=== PATIENT | male | born 1955 | race African-American/Black ===

== ENCOUNTER → 2017-03-11 | Outpatient (CLI) | payer OTHER ==
[~2017-03-11] VITALS: Ht 182.9 cm; Wt 98.7 kg
[2017-03-11] VITALS (13 sets, daily range): BP systolic 141–170; BP diastolic 75–106; PULSE 71–85
[~2017-03-11] MED LIST: ADVIL200 MG PO; ASPIRIN E.C. 8181 MG PO; LOPRESSOR 225 MG/TAB PO; METAMUCIL3.4 GM/DOS PO; MULTI VITAMINS1 TAB PO; NORCO 325 MG-51 TAB PO
== END ==
LOC: COL.RAD 03-04 13:30
DX: C79.89 Secondary malignant neoplasm of other specified sites (principal); Z85.46 Personal history of malignant neoplasm of prostate; E78.5 Hyperlipidemia, unspecified
CPT/HCPCS: J2250; J3010

== ENCOUNTER 2017-05-04 12:35 | Day surgery (SDC) | payer BC ==
[~2017-05-04] VITALS: Ht 182.9 cm; Wt 94.7 kg
[2017-05-04] VITALS (7 sets, daily range): BP systolic 131–165; BP diastolic 55–90; PULSE 52–65; TEMP 96.9–97.9
[~2017-05-04 12:35] MED LIST changes: -ADVIL200 MG PO; -ASPIRIN E.C. 8181 MG PO; -LOPRESSOR 225 MG/TAB PO; -METAMUCIL3.4 GM/DOS PO; -MULTI VITAMINS1 TAB PO
[2017-05-04] MEDS ORDERED: MULTI VITAMINS1 TAB PO (14:21)
[2017-05-04] MEDS ORDERED: LOPRESSOR 225 MG/TAB PO (14:21)
[2017-05-04] MEDS ORDERED: ASPIRIN E.C. 8181 MG PO (14:21)
[2017-05-04] MEDS ORDERED: ADVIL200 MG PO (14:22)
[2017-05-04] MEDS ORDERED: METAMUCIL3.4 GM/DOS PO (14:22)
== END 2017-05-04 21:15 | disposition home or self-care (01) ==
LOC: SDCO 12:35 → SURG 18:06 → SDCO 21:15
DX: C79.89 Secondary malignant neoplasm of other specified sites (principal); N13.39 Other hydronephrosis; N52.9 Male erectile dysfunction, unspecified; E78.00 Pure hypercholesterolemia, unspecified; Z92.3 Personal history of irradiation; Z92.21 Personal history of antineoplastic chemotherapy; Z85.46 Personal history of malignant neoplasm of prostate; Z85.038 Personal history of other malignant neoplasm of large intestine; Z87.891 Personal history of nicotine dependence; G44.009 Cluster headache syndrome, unspecified, not intractable
CPT/HCPCS: OP; C1769; C1788; C2617; J0690; J1100; J1644; J2405; J2704; J3010; J7120

== ENCOUNTER 2017-08-17 12:38 | Day surgery (SDC) | payer BC ==
[~2017-08-17] VITALS: Ht 182.9 cm; Wt 93.7 kg
[~2017-08-17 12:38] MED LIST changes: +ADVIL200 MG PO; +ASPIRIN E.C. 8181 MG PO; +LOPRESSOR 225 MG/TAB PO; +METAMUCIL3.4 GM/DOS PO; +MULTI VITAMINS1 TAB PO
[2017-08-17 14:10] VITALS: BP 121/89; PULSE 88; TEMP 98.2
[2017-08-17] MEDS ORDERED: TOPROL XL 25MG25 MG PO (14:18)
[2017-08-17] MEDS ORDERED: OMEGA-3 FISH1000 MG PO (14:20)
[2017-08-17] MEDS ORDERED: VITAMIN D31000 I1 PO (14:20)
[2017-08-17 16:10] VITALS: BP 135/91; PULSE 69; TEMP 97.9
[2017-08-17 16:13] VITALS: TEMP 98.1
[2017-08-17 16:25] VITALS: BP 154/91; PULSE 70
[2017-08-17] MEDS ORDERED: PYRIDIUM 100MG100 MG PO (16:25)
[2017-08-17] MEDS ORDERED: DULCOLAX STOOL100 MG PO (16:25)
[2017-08-17 16:40] VITALS: BP 149/91; PULSE 70
== END 2017-08-17 16:55 | disposition home or self-care (01) ==
LOC: SDCO 12:38
DX: N13.5 Crossing vessel and stricture of ureter without hydronephrosis (principal); C20 Malignant neoplasm of rectum; I10 Essential (primary) hypertension; E78.5 Hyperlipidemia, unspecified; R30.0 Dysuria; R35.0 Frequency of micturition; G44.009 Cluster headache syndrome, unspecified, not intractable; G43.909 Migraine, unspecified, not intractable, without status migrainosus; Z93.3 Colostomy status; Z85.46 Personal history of malignant neoplasm of prostate; Z92.3 Personal history of irradiation; N52.9 Male erectile dysfunction, unspecified; E78.00 Pure hypercholesterolemia, unspecified; Z87.891 Personal history of nicotine dependence
CPT/HCPCS: C1769; C2617; J0360; J0690; J1100; J1885; J2405; J2704; J3010; J7120; Q9967

== ENCOUNTER → 2018-07-06 | Outpatient (CLI) | payer BC ==
[~2018-07-06] MED LIST changes: +DULCOLAX STOOL100 MG PO; +OMEGA-3 FISH1000 MG PO; +PYRIDIUM 100MG100 MG PO; +TOPROL XL 25MG25 MG PO; +VITAMIN D31000 I1 PO
== END ==
LOC: MHCPAIN 08:13
DX: G89.29 Other chronic pain (principal); M47.817 Spondylosis without myelopathy or radiculopathy, lumbosacral region; M54.16 Radiculopathy, lumbar region; M53.3 Sacrococcygeal disorders, not elsewhere classified
CPT/HCPCS: G0463

== ENCOUNTER 2019-05-15 18:25 | Inpatient (IN) | payer BC ==
[~2019-05-15] VITALS: Ht 182.9 cm; Wt 90.7 kg
[2019-05-15] VITALS (59 sets, daily range): BP systolic 106; BP diastolic 75; PULSE 98; TEMP 98.7; O2SAT 92–98
[2019-05-15 19:06] LABS: BASO % 0.2 % (0.0-2.0); GRAN # 9.8 (1.4-6.5); LYMPH # 0.4 (1.2-3.4); LYMPH % 4.1 % (20.0-51.0); MEAN CELL VOLUME 98 fl (80.0-100.0); MEAN CORPUSCULAR HEMOGLOBIN 32 pg (27.0-31.0); MEAN CORPUSCULAR HGB CONC 33 g/dl (33.0-37.0); MEAN PLATELET VOLUME 11.3 fl (7.4-10.4); MONO # 0.1 (0.1-0.6); PLATELET COUNT 169 K/mm3 (130-400); RED BLOOD COUNT 3.75 M/mm3 (4.20-5.60); REDCELL DISTRIBUTION WIDTH-CV 14.6 % (11.5-14.5)
[2019-05-15 19:08] LABS: HEMATOCRIT 36.6 % (42.0-52.0)
[2019-05-15 19:34] LABS: INR 1.5 (0.8-3.0); PROTHROMBIN TIME 17.7 SECONDS (9.7-12.8)
[2019-05-15 19:36] LABS: ALBUMIN 3.4 gm/dL (3.5-5.0); BILIRUBIN,TOTAL 0.8 mg/dL (0.0-1.0); CALCIUM 8.4 mg/dL (8.4-10.2); POTASSIUM 4.2 mmol/L (3.4-5.0); TOTAL PROTEIN 6.8 gm/dL (6.4-8.2)
[2019-05-15 19:39] LABS: CREATININE, serum 3.98 (0.66-1.25)
[2019-05-15 19:45] LABS: TROPONIN-I 0.021 ng/mL (0.000-0.035)
[2019-05-15 20:09] LABS: MUCOUS Present /lpf; PH 6 (5-8); SQUAMOUS EPITHELIAL None Seen /hpf; URINE APPEARANCE Turbid; URINE BACTERIA Rare /hpf; URINE BILIRUBIN Negative (NEGATIVE); URINE BLOOD 3+ (NEGATIVE); URINE COLOR Red; URINE GLUCOSE Negative (NEGATIVE); URINE KETONE Negative (NEGATIVE); URINE LEUKOCYTE ESTERASE 2+ (NEGATIVE); URINE NITRATE Negative (NEGATIVE); URINE PROTEIN(semi-quant) 2+ (NEGATIVE); URINE RBC >50 /hpf; URINE UROBILINOGEN Negative (NEGATIVE)
[2019-05-15 20:11] LABS: COLLECTION METHOD CATHETER
[2019-05-15 20:24] LABS: C-REACTIVE PROTEIN 39.9 mg/dL (0.0-0.9)
[2019-05-15] MEDS ORDERED: ULTRAM 50MG TAB50 MG PO (20:44)
[2019-05-15] MEDS ORDERED: TOPROL XL 50MG50 MG PO (20:44)
[2019-05-15] MEDS ORDERED: LEVAQUIN 5500 MG/TA1 PO (20:46)
[2019-05-15 21:10] LABS: CREATININE, serum 3.91 (0.66-1.25)
[2019-05-15 21:22] LABS: FRACTIONAL EXCRETION OF NA+ 1.8 %
[2019-05-15] MEDS ORDERED: NORCO 325 MG-51 TAB PO (22:45)
[2019-05-15] MEDS ORDERED: RAPAFLO8 MG PO (22:46)
[2019-05-15] MEDS ORDERED: ASPIRIN 81M81 MG/TA2 PO (22:47)
[2019-05-15 23:22] LABS: CREATININE, serum 3.85 (0.66-1.25); FRACTIONAL EXCRETION OF NA+ 1.7 %
[2019-05-16] VITALS (544 sets, daily range): BP systolic 100–159; BP diastolic 56–101; PULSE 60–121; TEMP 98–102.4; O2SAT 69–100
[2019-05-16 06:06] LABS: HEMOGLOBIN 11.8 g/dl (13.5-18.0); MEAN CELL VOLUME 95 fl (80.0-100.0); MEAN CORPUSCULAR HEMOGLOBIN 32 pg (27.0-31.0); MEAN CORPUSCULAR HGB CONC 33 g/dl (33.0-37.0); MEAN PLATELET VOLUME 11.3 fl (7.4-10.4); PLATELET COUNT 153 K/mm3 (130-400); RED BLOOD COUNT 3.71 M/mm3 (4.20-5.60)
[2019-05-16 06:10] LABS: HEMATOCRIT 35.3 % (42.0-52.0)
[2019-05-16 06:13] LABS: INR 1.4 (0.8-3.0); PROTHROMBIN TIME 16.2 SECONDS (9.7-12.8)
[2019-05-16 06:31] LABS: BILIRUBIN,TOTAL 0.9 mg/dL (0.0-1.0); POTASSIUM 4.5 mmol/L (3.4-5.0); TOTAL PROTEIN 6.3 gm/dL (6.4-8.2)
[2019-05-16 06:32] LABS: CREATININE, serum 3.99 (0.66-1.25)
--- NOTE | 2019-05-16 07:00 | NUR ---
BEDSIDE REPORT RECEIVED FROM TITA FORMAN. PATIENT LYING IN BED WITH NO COMPLAINTS. ANNA TO DEPENDENT DRAINAGE WITH CLOUDY OUTPUT. CARE TAKEN OVER AT THIS TIME.
[2019-05-16 07:01] LABS: BAND 4 % (0-10); LYMPHOCYTE 5 % (20.0-51.0); NEUTROPHILS 86 % (42.0-75.2); PLATELET ESTIMATE NORMAL (NORMAL)
--- NOTE | 2019-05-16 08:00 | NUR ---
DR. TANG CALLED WITH CONSULT.
--- NOTE | 2019-05-16 08:15 | NUR ---
CALL FROM DR. KTITY RIVERS IN OR. ORDER RECEIVED TO KEEP PATIENT NPO.
--- NOTE | 2019-05-16 08:35 | NUR ---
MIGUEL met with the patient to discuss a discharge plan. The pt lives in [place] with his . The pt has a walker but does not use it and reports independence with ADLs. The pt's PCP is Dr. Curry Rico. The pt receives his medications from [facility] pharmacy and reports no diffculties obtaining them. The pt does not have advanced directives in the EMR and was not interested in obtaining a DPOA-HC form. The pt plans to return home upon discharge. There are no additional needs at this time.
--- NOTE | 2019-05-16 09:16 | NUR ---
Initial visit; Patient thanked Baker Pastry for looking in on him, offering spiritual care. Baker Pastry offered God's blessings.
--- NOTE | 2019-05-16 13:30 | NUR ---
CONSENT OBTAINED FOR RIGHT RETROGRADE WITH POSSIBLE RIGHT STENT. PLAN FOR PROCEDURE LATE THIS AFTERNOON.
--- NOTE | 2019-05-16 15:47 | NUR ---
PATIENT LEAVES FOR OPERATING ROOM AT THIS TIME
--- NOTE | 2019-05-16 19:10 | NUR ---
PATIENT ARRIVES BACK TO ROOM FROM PACU. HE IS ALERT AND ORIENTED. REQUESTING ICE CHIPS AND ICE WATER.
--- NOTE | 2019-05-16 19:40 | NUR ---
DR. TANG CALLED AT THIS TIME FOR CLARIFICATION REGARDING NEPHROSTOMY TUBE PLACEMENT. HE STATES IF DR. LAN IS READY TO PLACE THE TUBE, THEN PLACE IT TONIGHT. I CONFIRM WITH HIM AND YES, WE WILL PLACE NEPHROSTOMY TUBE SOON DR. LAN IS SET UP AND READY THIS EVENING. SUPERVISOR ADVICE NOTIFIED AND WILL TELL DR. LAN. CONSENT SIGNED FOR RIGHT SIDED NEPHROSTOMY TUBE PLACEMENT. WITNESSED BY TITA TOMLINSON. PATIENT, , DAUGHTER ALL HAVE THEIR QUESTIONS ANSWERED. PATIENT IS TAKEN TO CT AT THIS TIME WITH TITA TOMLINSON TO MONITOR DURING PROCEDURE.
--- NOTE | 2019-05-16 19:50 | NUR ---
PATIENT LEFT FOR SURGERY AT THIS TIME. CONSENT HAD BEEN SIGNED AND PATIENT WAS AWARE OF WHAT THE PROCEDURE CONSISTED OF, NEPHROSTOMY TUBE PLACEMENT. PATIENT WAS ALERT AND ORIENTED AND VITAL SIGNS STABLE. I ACCOMPANIED THE PATIENT DOWN TO SURGERY. VITAL SIGNS PROVIDED IN THE THE PROCEDURE DOCUMENTATION FLOWSHEET. PATIENT TOLERATED PROCEDURE VERY WELL. PATIENT RECEIVED 50 MCG OF FENTANYL RIGHT BEFORE THE TUBE WQAS PLACED TO HELP ELIMINATE ANY DISCOMFORT. PATIENT WAS ALERT AND TALKING DURING THE WHOLE PROCEDURE. PATIENT RETURNED TO THE ICU AT 2105 WHERE VITAL SIGNS STILL REMAINED STABLE. PATIENT WAS NOT COMPLAINING OF ANY PAIN AT THIS TIME. PATIENT SPENT TIME WITH FAMILY AND ATE FRUIT AND DRANK ICE WATER FOR DINNER. WILL CONTINUE TO MONITOR PATIENT AT THIS TIME.
[2019-05-17] VITALS (332 sets, daily range): BP systolic 96–139; BP diastolic 69–88; PULSE 78–90; TEMP 98.4–99.1; O2SAT 50–100
--- NOTE | 2019-05-17 00:46 | NUR ---
PATIENT CURRENTLY HAS A NEPHROSTOMY TUBE. THE TUBE IS PLACE ON HIS RIGHT MIDDDLE BACK. TUBE IS DRAINING WELL. WILL CONTINUE TO MONITOR PATIENT.
[2019-05-17 05:20] LABS: HEMOGLOBIN 10.1 g/dl (13.5-18.0); MEAN CELL VOLUME 96 fl (80.0-100.0); MEAN CORPUSCULAR HEMOGLOBIN 32 pg (27.0-31.0); MEAN CORPUSCULAR HGB CONC 33 g/dl (33.0-37.0); MEAN PLATELET VOLUME 11.9 fl (7.4-10.4); PLATELET COUNT 142 K/mm3 (130-400); RED BLOOD COUNT 3.19 M/mm3 (4.20-5.60); REDCELL DISTRIBUTION WIDTH-CV 15.4 % (11.5-14.5)
[2019-05-17 05:24] LABS: HEMATOCRIT 30.5 % (42.0-52.0)
[2019-05-17 05:26] LABS: INR 1.4 (0.8-3.0); PROTHROMBIN TIME 16.3 SECONDS (9.7-12.8)
[2019-05-17 05:35] LABS: ALBUMIN 2.7 gm/dL (3.5-5.0); BILIRUBIN,TOTAL 0.6 mg/dL (0.0-1.0); CALCIUM 7.8 mg/dL (8.4-10.2); CREATININE, serum 3.4 (0.66-1.25); POTASSIUM 4.2 mmol/L (3.4-5.0); TOTAL PROTEIN 6.1 gm/dL (6.4-8.2)
[2019-05-17 05:46] LABS: BAND 31 % (0-10); LYMPHOCYTE 2 % (20.0-51.0); NEUTROPHILS 61 % (42.0-75.2)
[2019-05-17 05:47] LABS: ANISOCYTOSIS 1+; PLATELET ESTIMATE NORMAL (NORMAL)
--- NOTE | 2019-05-17 06:40 | NUR ---
UNABLE TO WEIGH PATIENT AT THIS TIME DUE TO BED MALFUNCTIONING.
--- NOTE | 2019-05-17 07:10 | NUR ---
BEDSIDE REPORT RECEIVED FROM TITA TOMLINSON. PLAN OF CARE REVIEWED. CARE ASSUMED.
--- NOTE | 2019-05-17 07:19 | NUR ---
GAVE REPORT TO TITA LEWIS.
--- NOTE | 2019-05-17 11:05 | NUR ---
SW rounded with the team. Pt is to stay in ICU today, 05/17. SW will continue to follow.
--- NOTE | 2019-05-17 19:05 | NUR ---
Bedside report received from Juani RIVERS. Pt resting in bed at this time active in report. Family X3 at bedside during report. Pt denies any wants or needs at this time.
[2019-05-18] VITALS (10 sets, daily range): BP systolic 144–172; BP diastolic 88–104; PULSE 61–93; TEMP 97.7–99.3; O2SAT 96
--- NOTE | 2019-05-18 02:42 | NUR ---
Pt called this nurse into room at approximately 0130 reported increased pain and swelling in scrotum. Pt requested some ice at this time as well as pain medication. Pt reported wanting "the strongest medication you have orally and IV". PRN pain medications were discussed. Pt requested the IV Dilaudid and the PO [place]. The decrease is respiratory drive with administration of both medications were discussed with pt. Agreement to try Dilaudid was obtained with the use of PRN Ultram as well. Pillow cover was used to sling pts scrotum up with ice pack placed underneath. PRN pain medications were provided with complete improvement verbalized by pt. This nurse stayed at bedside for close to an hour talking with pt about nature and pts passions, as well as family and history.
[2019-05-18 06:30] LABS: HEMOGLOBIN 10.4 g/dl (13.5-18.0); MEAN CELL VOLUME 94 fl (80.0-100.0); MEAN CORPUSCULAR HEMOGLOBIN 32 pg (27.0-31.0); MEAN CORPUSCULAR HGB CONC 34 g/dl (33.0-37.0); PLATELET COUNT 142 K/mm3 (130-400); RED BLOOD COUNT 3.29 M/mm3 (4.20-5.60); REDCELL DISTRIBUTION WIDTH-CV 15.4 % (11.5-14.5)
[2019-05-18 06:42] LABS: ALBUMIN 2.8 gm/dL (3.5-5.0); BILIRUBIN,TOTAL 0.4 mg/dL (0.0-1.0); CALCIUM 8.4 mg/dL (8.4-10.2); CREATININE, serum 2.17 (0.66-1.25); MAGNESIUM 2.2 mg/dL (1.6-2.3); POTASSIUM 3.9 mmol/L (3.4-5.0); TOTAL PROTEIN 5.9 gm/dL (6.4-8.2)
[2019-05-18 06:52] LABS: INR 1.2 (0.8-3.0); PROTHROMBIN TIME 13.7 SECONDS (9.7-12.8)
[2019-05-18 07:14] LABS: BAND 15 % (0-10); LYMPHOCYTE 6 % (20.0-51.0); NEUTROPHILS 74 % (42.0-75.2)
[2019-05-18 07:15] LABS: DOHLE BODIES PRESENT; TOXIC GRANULATION PRESENT
--- NOTE | 2019-05-18 08:00 | NUR ---
Shift assessment complete at this time. Plan of care reviewed at bedside with patient. Additional time taken to address any other needs or concerns. Vitals stable at this time. Reports pain as tolerable. Schedule antonia is taking the pain away well. Bed in low position, call light within reach, will continue to monitor.
--- NOTE | 2019-05-18 12:00 | NUR ---
Pt resting comfortably in bed. Reports tolerable r flank/scrotal pain and denies need for any further intervention. Vitals stable at this time. Bed in low position, call light within reach, will continue to monitor.
--- NOTE | 2019-05-18 15:34 | NUR ---
Physical therapy was ordered. Follow along for recommendations.
--- NOTE | 2019-05-18 16:00 | NUR ---
Pt resting in chair at this time. Vitals stable. Pt reports tolerable r flank/scrotal pain and denies need for any further intervention. Pt also c/o slight stomach upsetness and declines any further intervention at this time. Will continue to monitor stomach upsetness and be available for Pt needs. Bed in low position, call light within reach, will continue to monitor.
--- NOTE | 2019-05-18 17:25 | NUR ---
Pt transferred to surgical bed 345 by wheelchair. Pt tolerated transfer well with no complaints or concerns raised to this RN. Report called prior to TITA Florez at 1716.
--- NOTE | 2019-05-18 17:30 | NUR ---
Patient arrived to the Surgicall floor from ICU at this time, he is alert/oriented, vital signs stable, he is having some nausea/vomitting which just started around 1644, he was given Phenergan by ICU nurse prior to coming to Surgical floor but so far it has not releivive his nausea, family present in the room, will continue to monitor
--- NOTE | 2019-05-18 19:40 | NUR ---
Shift assessment complete. Patient c/o 8/10 pain after prn IV pain medication. Declines further medication at this time. States, not passing gas, abdomen tender/distended. No output noted in LLQ ostomy. Notified Sneha, ESE TEACHER. STAT KUB ordered, radiology notified. LUE PICC flushed with 10ml NS, patent. Right chest port flushed with 10ml NS, patent. Temp 99.3, BP 172/88 (consistnent with previous). Will recheck in one hour. Family at bedside (daughter and ). Daughter is an RN. SCD's placed on BLE. Denies further needs at this time. Will continue to monitor.
--- NOTE | 2019-05-18 19:45 | NUR ---
Patient's daughter in room. As I was getting ready to empty his varela and nephrostomy bags, she was insistent that she empty them. Gave her 2 graduated cylinders to empty both. Charted output. Will continue to monitor.
--- NOTE | 2019-05-18 22:28 | NUR ---
Patient in bed, family at bedside. When rechecking temp, daughter stated, "oh, I already checked it with your machine." Rechecked temp 98.1. BP elevated, Sneha notified.
--- NOTE | 2019-05-18 22:31 | NUR ---
Tej, Agency Recruiter attempted to place NG tube. Patient did not tolerate and pulled the tube out as she was advancing it. Patient states pain is 3/10 after increased dose of IV pain medication. BP 172/101. Will notify ALVAREZ Hoover of the above. Family remains at bedside. Daughter would like IVF started. Will notify ALVAREZ Hoover.
--- NOTE | 2019-05-18 22:59 | NUR ---
Dr. Rossi at bedside talking to family.
--- NOTE | 2019-05-18 23:40 | NUR ---
Patient in bed, resting. States, 01/29 pain in abdomen. Declines pain medication, stating, "I am fine." Son at bedside, states, he is a Resident Physician in [place], [place]. Requesting a copy of patient's labs to be printed off. Informed him that would need to be done through medical records after discharge. With patient's permission, son updated with most recent lab results. IVF started in LUE PICC line. Zofran given per one-time order. Patient continues to rest in bed. Turns self independently. Declines further needs at this time. Will continue to assess.
[2019-05-19] VITALS (9 sets, daily range): BP systolic 136–168; BP diastolic 84–108; PULSE 99–127; TEMP 98.5–99.5
--- NOTE | 2019-05-19 00:21 | NUR ---
Patient in bed, resting. Son remains at bedside. Patient states, pain is still 3/10. DECLINES pain medication. Patient states, he is slightly nauseous, but DECLINES an antiemetic. Will continue to monitor.
--- NOTE | 2019-05-19 00:56 | NUR ---
Patient had 6 runs of vtach per tele. Patient in bed, awake. Denies chest pain. BP 163/97. Sneha, INSTRUMENT SPECIALIST notified of vtach. Will continue to monitor. Patient states, the pain in his abdomen is "coming back." Will give prn pain medication and continue to monitor.
--- NOTE | 2019-05-19 01:09 | NUR ---
Patient c/o 05/31 in abdomen. Prn pain medication given. Stated, ice chips made him feels nauseous. DECLINED antiemetic. Daughter at bedside, staying the night. Will continue to monitor.
--- NOTE | 2019-05-19 05:45 | NUR ---
Patient in bed, resting. Daughter at bedside. States, pain 3/10 in abdomen. Declined pain medication. Lab at bedside to collect specimen. Attempted to draw from right chest port. Unable to get blood return after manipulating needle, having patient cough, and sit up. Flushed port with 20ml NS, and clamped. Labs drawn from PICC. Difficulty drawing adequate amount of blood. Able to obtain specimen after having patient sit up and cough. Movement during lab draw caused pain to increase 6/10. Prn pain medication given. BP elevated 160/105, gave ordered antihypertensive IV. Will recheck BP. Denies further needs at this time. Will continue to monitor.
[2019-05-19 06:11] LABS: HEMOGLOBIN 12.2 g/dl (13.5-18.0); MEAN CELL VOLUME 91 fl (80.0-100.0); MEAN CORPUSCULAR HEMOGLOBIN 31 pg (27.0-31.0); MEAN CORPUSCULAR HGB CONC 34 g/dl (33.0-37.0); MEAN PLATELET VOLUME 12.2 fl (7.4-10.4); PLATELET COUNT 159 K/mm3 (130-400); RED BLOOD COUNT 3.92 M/mm3 (4.20-5.60); REDCELL DISTRIBUTION WIDTH-CV 15.1 % (11.5-14.5)
[2019-05-19 06:29] LABS: ALBUMIN 2.5 gm/dL (3.5-5.0); BILIRUBIN,TOTAL 0.5 mg/dL (0.0-1.0); CALCIUM 7.2 mg/dL (8.4-10.2); CREATININE, serum 1.38 (0.66-1.25); POTASSIUM 3.3 mmol/L (3.4-5.0); TOTAL PROTEIN 5.6 gm/dL (6.4-8.2)
[2019-05-19 06:39] LABS: HEMATOCRIT 35.5 % (42.0-52.0)
[2019-05-19 07:48] LABS: BAND 3 % (0-10); EOSINOPHIL 2 % (0-4); LYMPHOCYTE 3 % (20.0-51.0); NEUTROPHILS 74 % (42.0-75.2); PLATELET ESTIMATE NORMAL (NORMAL)
--- NOTE | 2019-05-19 19:28 | NUR ---
Patient resting in bed at this time, with his son at bedside. Patient has had an eventful day. This am his & daughter were at bedside. Hospitalist rounded a few times today & reviewed plan of care with patient & his family even Dr. Rico patient's PCP rounded today. The biggest concern today being tachycardia. Ct of chest was negative for PE. Patient home metoprolol dose converted to Iv lopressor & dose adjusted today given patient elevated Heart rate. Patient had 2 EKGs today noting sinus tach. Patient pain manged with IV dialudid. Patient tolerated successful NG tube placement this am with minimal complaints. 14F to Right nare. He had 700ml of dark output. Patient has been sipping water today for comfort of dry mough. Patient has been out of bed today, worked with PT, he was up to sink to brushed his teeth. Bed bath provided & fresh linens. Dyspnea noted on exertion. Higgins to DD with concentrated output, Neph tube to DD with adequate output. Neph tube was flushed today. Neph tube gauze & tegaderm dressing is CDI. Scds have been on and off thoughout the day. Picc to RUE & port to Right chest. Patient has been very kind & thankful for care. Bedside report to Sally RIVERS
--- NOTE | 2019-05-19 20:00 | NUR ---
Patient report received from TITA Milian at shift change. Upon assessment patient is resting in bed with family at bedside. Patient reports pain at 3/10, requests IV pain medication. PRN Dilaudid given. Heart rate 120-130's, scheduled IV lopressor given at this time as well, Tele in place. IV fluids infusing through left upper arm PICC. INT'd Port to right chest wall. Higgins and R neph tube present, output appears to be adequate at this time. Ostomy to left ABD present, no output noted. NG to LIS, brown output noted. No other needs reported/observed.
[2019-05-20 04:06] VITALS: BP 140/89; PULSE 101; TEMP 99.2
--- NOTE | 2019-05-20 05:28 | NUR ---
Patient report given to TITA Mcgee. Patient resting comfortably at this time. NG cannister changed, 900 ml dark brown output.
--- NOTE | 2019-05-20 07:00 | NUR ---
Report given to Ness RIVERS
[2019-05-20 07:29] VITALS: BP 162/99; PULSE 94; TEMP 99.6
--- NOTE | 2019-05-20 07:45 | NUR ---
Assessment charted. Patient A&Ox4, reporting pain in lower back, lower legs and groin. Pain medication requested and administered. VS stable. PICC AMBROSE CDI, fluids infusing. BLE SCD's. NG LIS, brown drainage. Nephrostomy drainage right side, clear yellow.. Higgins dependent drainage clear yellow. No further needs expressed from patient. Call light within reach.
[2019-05-20 08:02] LABS: HEMOGLOBIN 11.2 g/dl (13.5-18.0); MEAN CELL VOLUME 94 fl (80.0-100.0); MEAN CORPUSCULAR HEMOGLOBIN 31 pg (27.0-31.0); MEAN CORPUSCULAR HGB CONC 33 g/dl (33.0-37.0); MEAN PLATELET VOLUME 12.1 fl (7.4-10.4); PLATELET COUNT 219 K/mm3 (130-400); RED BLOOD COUNT 3.58 M/mm3 (4.20-5.60); REDCELL DISTRIBUTION WIDTH-CV 15.9 % (11.5-14.5)
[2019-05-20 08:08] LABS: HEMATOCRIT 33.6 % (42.0-52.0)
[2019-05-20 08:25] LABS: CALCIUM 8.3 mg/dL (8.4-10.2); CREATININE, serum 1.55 (0.66-1.25); POTASSIUM 3.6 mmol/L (3.4-5.0)
[2019-05-20 09:57] LABS: ANISOCYTOSIS 1+; BAND 1 % (0-10); LYMPHOCYTE 25 % (20.0-51.0); NEUTROPHILS 68 % (42.0-75.2); PLATELET ESTIMATE NORMAL (NORMAL)
--- NOTE | 2019-05-20 10:41 | NUR ---
Patient has a colostomy LLQ, no output, patient has a SBO. Stoma red and colostomy bag attached, CDI. Call light within reach
[2019-05-20 11:52] VITALS: BP 156/80; PULSE 102; TEMP 99
--- NOTE | 2019-05-20 12:51 | NUR ---
Report given to TITA Bae. Patient sitting on edge of bed eating lunch. Denies pain and discomfort. CBI dependent drainage, clear yellow urine. No further needs expressed from patient. Call light within reach
--- NOTE | 2019-05-20 12:53 | NUR ---
Report given to TITA Bae
--- NOTE | 2019-05-20 13:00 | NUR ---
Patient up in recliner resting. Alert and oriented x 3. Shift assessment complete. Higgins to dependent drainage with clear yellow urine present. Right neph tube present with adequate drainage present. Colostomy to left quadrant with minimal output noted. Per patient had BM and changed out ostomy appliace on his own, had medium sized BM. NG to LIS with brown ouput. Fluids infusing via pump to left upper arm. Denies pain or further needs at this time.
--- NOTE | 2019-05-20 15:13 | NUR ---
Per Dr. Grace, clamp NG patient ok to advance to clear liquid diet. Patient has had 2 bm today, per patient.
[2019-05-20 16:27] VITALS: BP 165/91; PULSE 104; TEMP 98.8
--- NOTE | 2019-05-20 19:05 | NUR ---
Patient in bed resting. Denies pain at this time. Denies further needs at this time. Reported off to lieutenant shift supervisor.
[2019-05-20 20:02] VITALS: BP 176/93; PULSE 96; TEMP 101.3
[2019-05-21] VITALS (10 sets, daily range): BP systolic 163–187; BP diastolic 84–94; PULSE 86–114; TEMP 98.2–100
[2019-05-21 05:06] LABS: HEMOGLOBIN 10.8 g/dl (13.5-18.0); MEAN CELL VOLUME 95 fl (80.0-100.0); MEAN CORPUSCULAR HEMOGLOBIN 31 pg (27.0-31.0); MEAN CORPUSCULAR HGB CONC 33 g/dl (33.0-37.0); MEAN PLATELET VOLUME 12.4 fl (7.4-10.4); PLATELET COUNT 242 K/mm3 (130-400); RED BLOOD COUNT 3.48 M/mm3 (4.20-5.60); REDCELL DISTRIBUTION WIDTH-CV 15.8 % (11.5-14.5)
[2019-05-21 05:17] LABS: ALBUMIN 2.8 gm/dL (3.5-5.0); BILIRUBIN,TOTAL 0.9 mg/dL (0.0-1.0); CALCIUM 8.6 mg/dL (8.4-10.2); CREATININE, serum 1.42 (0.66-1.25); POTASSIUM 3.3 mmol/L (3.4-5.0); TOTAL PROTEIN 6.1 gm/dL (6.4-8.2)
--- NOTE | 2019-05-21 05:53 | NUR ---
PT IN BED. PT HAD LARGE EMESIS. NG HOOKED BACK TO SUCTION FOR BRIEF PERIOD BUT VERY LITTLE CAME BACK THROUGH TUBE. TEMPS RUNNING 99'S.
[2019-05-21 06:09] LABS: BAND 15 % (0-10); LYMPHOCYTE 12 % (20.0-51.0); NEUTROPHILS 60 % (42.0-75.2); NUCLEATED RED BLOOD CELL 1 (0-6); PLATELET ESTIMATE NORMAL (NORMAL)
[2019-05-21 06:12] LABS: ANISOCYTOSIS 1+
--- NOTE | 2019-05-21 08:00 | NUR ---
Patient resting in bed at this time. NG remains clamped, patient denies pain or needs currently. Higgins draining yellow, blood tinged urine. Patient currently denies nausea at this time. Call light within reach.
--- NOTE | 2019-05-21 13:00 | NUR ---
Patient up and walked with PT, reports an emesis after he returned to his room. NG re connected to suction. Approximately 400ml of dark green drainage in the cannister. Family expresses concern that suction is not working properly. Informed patient and family that suction would have to be disconnected for PO meds. Informed them that when suction was reconnected, all tubing and the cannister would be replaced to ensure there were no vaccum leaks, if suction was still not working properly it would be replaced or a new room would be offered. Patient and family verbalized understanding.
--- NOTE | 2019-05-21 19:01 | NUR ---
Patient resting in bed with family at bedside. Patient showered with no complications. NG tube remains clamped per order, patient denies nausea and no further episodes of emesis. Patient denies needs at this time, call light within reach.
[2019-05-22] VITALS (13 sets, daily range): BP systolic 121–191; BP diastolic 71–92; PULSE 101–113; TEMP 98.4–99.9
--- NOTE | 2019-05-22 06:26 | NUR ---
PT IN BED. DILAUDID FOR PAIN. PT HAD SEVERAL EMESIS DURING THE NIGHT.
[2019-05-22 07:14] LABS: HEMOGLOBIN 10.4 g/dl (13.5-18.0); MEAN CELL VOLUME 96 fl (80.0-100.0); MEAN CORPUSCULAR HEMOGLOBIN 31 pg (27.0-31.0); MEAN CORPUSCULAR HGB CONC 32 g/dl (33.0-37.0); MEAN PLATELET VOLUME 12.7 fl (7.4-10.4); PLATELET COUNT 263 K/mm3 (130-400); REDCELL DISTRIBUTION WIDTH-CV 15.7 % (11.5-14.5)
[2019-05-22 07:26] LABS: ALBUMIN 2.8 gm/dL (3.5-5.0); BILIRUBIN,TOTAL 0.7 mg/dL (0.0-1.0); CALCIUM 8.6 mg/dL (8.4-10.2); CREATININE, serum 1.25 (0.66-1.25); POTASSIUM 3.3 mmol/L (3.4-5.0); TOTAL PROTEIN 6.2 gm/dL (6.4-8.2)
[2019-05-22 07:29] LABS: HEMATOCRIT 32.6 % (42.0-52.0)
[2019-05-22 08:15] LABS: PATHOLOGY DIFF REVIEW OK +
[2019-05-22 09:01] LABS: BAND 3 % (0-10); EOSINOPHIL 1 % (0-4); LYMPHOCYTE 12 % (20.0-51.0); NEUTROPHILS 77 % (42.0-75.2)
[2019-05-22 09:02] LABS: PLATELET ESTIMATE NORMAL (NORMAL)
[2019-05-22 09:04] LABS: HYPOCHROMIA 1+
--- NOTE | 2019-05-22 10:30 | NUR ---
Patient alert and oriented, answers questions appropriately. See assessment. NGT re-secured to nose, connected to LIS. Small amounts of brown drainage noted from NGT. Abdomen with colectomy noted. Abdomen rounded and firm. No bowel sounds ausculated, no flatus. Higgins catheter patent and draining clear yellow urine. Urostomy tube in place to right flank, draining clear yellow urine. No c/o at this time.
--- NOTE | 2019-05-22 22:39 | NUR ---
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 Patient a/o x4. Denies pain. Midline ABD drsg CDI. Epidural infusing at ordered rate. Epidural dressing CDI. VS stable. Will continue to monitor.
[2019-05-23] VITALS (8 sets, daily range): BP systolic 108–138; BP diastolic 63–79; PULSE 97–117; TEMP 98.5–100.8
--- NOTE | 2019-05-23 00:20 | NUR ---
Patient in bed, sleeping. Arouses to name. Denies pain. States he is comfortable. Denies further needs at this time. Will continue to monitor.
--- NOTE | 2019-05-23 02:28 | NUR ---
HR 130's per tele. Patient in bed, awake. Denies pain. HR decreased to 112. BP 111/74. Will give ordered lopressor and continue to monitor.
--- NOTE | 2019-05-23 03:53 | NUR ---
Patient in bed, awake. Portacath deaccessed per protocol. Flushed with NS, flushed with 5ml heparin. Bandaid placed. Patient tolerated well. IVF tubing changed, IVF now infusing into red lumen of PICC. Purple lumen of PICC does not flush. Will notify day shift, to pass on to PICC RN. Denies pain. Denies further needs at this time.
--- NOTE | 2019-05-23 05:29 | NUR ---
Patient in bed, awake. Labs drawn from red lumen of PICC line per protocol. Denies pain. Denies further needs at this time. Will continue to monitor.
[2019-05-23 06:56] LABS: BASO % 0.2 % (0.0-2.0); EOS # 0.1 (0.0-0.7); EOS % 0.6 % (0-4.0); GRAN # 11.9 (1.4-6.5); GRAN % 79.4 % (42.2-75.2); HEMOGLOBIN 10.7 g/dl (13.5-18.0); LYMPH # 1.7 (1.2-3.4); LYMPH % 11.3 % (20.0-51.0); MEAN CELL VOLUME 97 fl (80.0-100.0); MEAN CORPUSCULAR HEMOGLOBIN 31 pg (27.0-31.0); MEAN CORPUSCULAR HGB CONC 32 g/dl (33.0-37.0); MEAN PLATELET VOLUME 12.8 fl (7.4-10.4); MONO # 1.2 (0.1-0.6); MONO % 7.7 % (1.7-9.3); PLATELET COUNT 297 K/mm3 (130-400); RED BLOOD COUNT 3.48 M/mm3 (4.20-5.60)
[2019-05-23 07:06] LABS: HEMATOCRIT 33.9 % (42.0-52.0)
[2019-05-23 09:31] LABS: ALBUMIN 2.6 gm/dL (3.5-5.0); BILIRUBIN,TOTAL 0.9 mg/dL (0.0-1.0); CALCIUM 8.2 mg/dL (8.4-10.2); CREATININE, serum 1.41 (0.66-1.25); PHOSPHOROUS 3.7 mg/dL (2.5-4.5); POTASSIUM 3.9 mmol/L (3.4-5.0); TOTAL PROTEIN 5.7 gm/dL (6.4-8.2)
[2019-05-23 09:38] LABS: PRE ALBUMIN 9.3 mg/dL (17.6-36.0)
--- NOTE | 2019-05-23 11:21 | NUR ---
Patient resting in bed. Family at bedside. Doctors have all rounded & plan of care reviewed & orders obtained. He has done well this am. Pain well managed with Epidural in place. Epidural tape & tegaderm intact, slight drainge noted to spine. Patient remains Npo with NG tube to LIS. He is tolerating some ice chips for comfort. Higgins to DD with blood tinged urine noted. Neph tube to DD, dressing CDI secured to leg. Output clear. Abdomen soft, Midline incision with gauze dressing intact. bowel quiet. Ostomy appliance to LLQ with small amount of output noted. Picc to Rue, dietary rounded plans to start TPN today. Scds ble. IS use encouraged. Vss, Tele on, remains tachy. He ambulated halls with therapy, using walker, dyspnea with exertion. Will monitor.
--- NOTE | 2019-05-23 11:50 | NUR ---
PICC intact left upper arm. With sterile technique left upper arm PICC dressing change done with insertion site cleansed with ChloraPrep 1, chlorhexidine impregnated disc applied, skin prep, StatLock, and Tegaderm applied. No signs or symptoms of IV complications noted. No concerns voiced. Arm wrapped with Marcus to protect catheter.
--- NOTE | 2019-05-23 19:26 | NUR ---
Patient has continued to do well today. rounded, he is aware of scrotal swelling & bloody output from varela, varela to dc. Brief in place. Patient has had adequate output from neph tube. some output from ostomy. Ng remains to Lis, green output. denies nausea. Tpn started per orders to picc in Lue. midline incisions CDI. Epidural continues to manage pain. Vss on tele, continues to have tachycardia at times.Bedside report to sarahi
--- NOTE | 2019-05-23 20:00 | NUR ---
Report received. 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 Assessment complete. VS stable. Noted to have some tachycardia. NG to right [id number] intermittent suction-green output. Leg bag emptied at this time-dark yellow urine with some old blood. PICC line to left upper arm infusing TPN @ 56.8ml/hr. Epidural is managing pain adequately. Family at bedside. Denies need. Encouraged to call for questions or concerns. Verbalizes understanding. WIll monitor.
[2019-05-24] VITALS (8 sets, daily range): BP systolic 131–150; BP diastolic 69–77; PULSE 101–113; TEMP 99.2–101.5
[2019-05-24 06:11] LABS: BASO # 0.1 (0.0-0.2); BASO % 0.4 % (0.0-2.0); EOS # 0.4 (0.0-0.7); EOS % 2.6 % (0-4.0); GRAN # 10.2 (1.4-6.5); GRAN % 72.7 % (42.2-75.2); LYMPH # 1.9 (1.2-3.4); LYMPH % 13.6 % (20.0-51.0); MEAN CELL VOLUME 97 fl (80.0-100.0); MEAN CORPUSCULAR HGB CONC 32 g/dl (33.0-37.0); MEAN PLATELET VOLUME 12.4 fl (7.4-10.4); MONO # 1.4 (0.1-0.6); MONO % 9.7 % (1.7-9.3); PLATELET COUNT 269 K/mm3 (130-400); RED BLOOD COUNT 3.02 M/mm3 (4.20-5.60); REDCELL DISTRIBUTION WIDTH-CV 15.8 % (11.5-14.5)
[2019-05-24 06:37] LABS: CALCIUM 7.9 mg/dL (8.4-10.2); CREATININE, serum 1.48 (0.66-1.25); MAGNESIUM 2.2 mg/dL (1.6-2.3); PHOSPHOROUS 2.4 mg/dL (2.5-4.5); POTASSIUM 3.5 mmol/L (3.4-5.0)
[2019-05-24 06:51] LABS: HEMATOCRIT 29.4 % (42.0-52.0); HEMOGLOBIN 9.3 g/dl (13.5-18.0); MEAN CORPUSCULAR HEMOGLOBIN 31 pg (27.0-31.0)
--- NOTE | 2019-05-24 09:00 | NUR ---
Patient wanting to sleep this am. He was up to the bathroom this am, voided provided with new gown. He does not want to be bothered. Iv antibioitcs to Right hand per orders. Am medication given, bp elevated. He has refused to order breakfast. Social work rounded. Will motnior.
--- NOTE | 2019-05-24 14:07 | NUR ---
Patient resting in bed. He has done well today. Ambulated halls with therapy. reenforced epidural tape on back,noted to be rolling up back. Epidrual rate decreased by anesthesia this am & patient pain continues to be well managed. Dr. Moreno rounded this am, NG tube clamped per orders & Patient has tolerated with minimal residual noted. He continues to sip water for comfort. Patient Neph tube with adequate output. He continues to have leaking noted from penis purulent & blood tinged-Pericare provided with new brief. Fresh linens & bed bath provided. Midline incision ulysses intact & gauze & paper tape re applied per . Colostomy to LLQ with minimal output noted. Scds ble. Will monitor.
--- NOTE | 2019-05-24 17:59 | NUR ---
Patient resting in bed. Family at bedside. he ambulated the halls again with therapy & did well. Dr. Moreno rounded. Ng placed back to LIS. Patient has had very minimal output from colostomy. Neph tube continue to have good output. Picc to LUE, TPN per orders. Scds ble.
--- NOTE | 2019-05-24 19:07 | NUR ---
Patient provided with pericare & new brief, he continues to have leaking from penis. New ostomy bag applied to stoma per patient request. NG to LIS. Neph tube drained. Bedside report to Shonna Martinez
--- NOTE | 2019-05-24 19:30 | NUR ---
Notified by staff that temp is 101.5. New order received for Tylenol suppository. Discussed with patient and family-requesting to take again as he doesnt feel as if he has a fever. Re-taken at this time-temp 99.8 orally. Notified hospitalist to see if okay to hold. States can hold. Will re-check temp in one hour to make sure afebrile.
--- NOTE | 2019-05-24 20:00 | NUR ---
Report received. 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 Assessment complete. VS stable. Pain adequately controlled with epidural. Nephrostomy with dark yellow urine-dumped at this time-approx 400mls. Dressing to midline abdomen C/D/I. NG to intermittent suctions-dark green return. Colostomy with no output.Family at bedside. Denies questions or concerns. Will monitor.
--- NOTE | 2019-05-24 21:15 | NUR ---
Re-check of temp 99.8 orally. Will continue to monitor.
[2019-05-25 03:56] VITALS: BP 129/74; PULSE 88; TEMP 99.5
--- NOTE | 2019-05-25 08:00 | NUR ---
Patient in bed resting. Alert and oriented x 3. Shift assessment complete. Neph tube noted to leg bag with clear yellow urine present. Epidural intact with minimal drainage noted. Colostomy to left quadrant with minimal output noted. PICC line to LUE with TPN infusing per orders. Midline incision with gauze dressing is CDI. Denies pain at this time. Denies further needs at this time.
[2019-05-25 08:16] VITALS: BP 132/79; PULSE 101; TEMP 98.6
[2019-05-25 09:26] LABS: BASO % 0.2 % (0.0-2.0); EOS # 0.4 (0.0-0.7); EOS % 3.5 % (0-4.0); GRAN # 8.8 (1.4-6.5); GRAN % 70.5 % (42.2-75.2); LYMPH # 1.7 (1.2-3.4); LYMPH % 13.9 % (20.0-51.0); MEAN CELL VOLUME 98 fl (80.0-100.0); MEAN CORPUSCULAR HGB CONC 31 g/dl (33.0-37.0); MEAN PLATELET VOLUME 12.8 fl (7.4-10.4); MONO # 1.4 (0.1-0.6); PLATELET COUNT 260 K/mm3 (130-400); REDCELL DISTRIBUTION WIDTH-CV 15.5 % (11.5-14.5)
[2019-05-25 09:30] LABS: CALCIUM 8.1 mg/dL (8.4-10.2); CREATININE, serum 1.34 (0.66-1.25); MAGNESIUM 2.2 mg/dL (1.6-2.3); PHOSPHOROUS 2.5 mg/dL (2.5-4.5); POTASSIUM 3.7 mmol/L (3.4-5.0)
--- NOTE | 2019-05-25 09:30 | NUR ---
Notified Dr. Garcia of ID consult for patient.
[2019-05-25 09:34] LABS: HEMATOCRIT 29.4 % (42.0-52.0); HEMOGLOBIN 9.2 g/dl (13.5-18.0); MEAN CORPUSCULAR HEMOGLOBIN 31 pg (27.0-31.0)
--- NOTE | 2019-05-25 10:10 | NUR ---
Notified anesthesia, epidural ran out, needs replacement.
[2019-05-25 12:21] VITALS: BP 150/93; PULSE 94; TEMP 99.1
[2019-05-25 16:56] VITALS: BP 152/85; PULSE 99; TEMP 99.5
--- NOTE | 2019-05-25 18:15 | NUR ---
Patient has done well today. NG clamped and tolerating clear liquids. Continues to have adequate output from Neph tube. Colostomy continues to have minimal output. Family at bedside. Epidural infusing. Denies pain or further needs at this time. Will report off to mini shifter.
[2019-05-25 18:22] LABS: COLLECTION METHOD CATHETER
[2019-05-25 18:58] LABS: MUCOUS Present /lpf; PH 8 (5-8); SQUAMOUS EPITHELIAL None Seen /hpf; URINE APPEARANCE Clear; URINE BACTERIA None Seen /hpf; URINE BILIRUBIN Negative (NEGATIVE); URINE BLOOD 1+ (NEGATIVE); URINE COLOR Yellow; URINE GLUCOSE Negative (NEGATIVE); URINE KETONE Negative (NEGATIVE); URINE LEUKOCYTE ESTERASE Negative (NEGATIVE); URINE NITRATE Negative (NEGATIVE); URINE PROTEIN(semi-quant) 1+ (NEGATIVE); URINE RBC 20-50 /hpf; URINE UROBILINOGEN Negative (NEGATIVE)
[2019-05-25 19:50] VITALS: BP 153/79; PULSE 110; TEMP 99.9
--- NOTE | 2019-05-25 20:24 | NUR ---
Pt. laying in bed with family at bed side. Pt. is A&OX3, assessment complete. PICC to lt upper arm patent. TPN infusing per orders. Dressing to midline incison CDI. Nephrostomy with anabela clear urine noted. Pt. denies pain or other needs at this time. Call light within reach.
[2019-05-26 00:36] VITALS: BP 148/76; PULSE 107; TEMP 99.5
[2019-05-26 04:27] VITALS: BP 138/81; PULSE 104; TEMP 99.1
--- NOTE | 2019-05-26 06:01 | NUR ---
Pt. slept well through the night. Pt. remains A&OX3. PICC to lt. upper arm patent. TPN infusing per orders. Pt. reports only feeling mildly nausous a couple times through the night. Pt. did not ask for any antiemetics. Pt. denies pain or other needs at this time.
[2019-05-26 06:19] LABS: CALCIUM 8.6 mg/dL (8.4-10.2); CREATININE, serum 1.32 (0.66-1.25); MAGNESIUM 2.1 mg/dL (1.6-2.3); PHOSPHOROUS 2.8 mg/dL (2.5-4.5)
[2019-05-26 07:44] VITALS: BP 152/81; PULSE 104; TEMP 99.3
[2019-05-26 07:45] LABS: MEAN CELL VOLUME 98 fl (80.0-100.0); MEAN CORPUSCULAR HEMOGLOBIN 31 pg (27.0-31.0); MEAN CORPUSCULAR HGB CONC 31 g/dl (33.0-37.0); MEAN PLATELET VOLUME 12.6 fl (7.4-10.4); PLATELET COUNT 229 K/mm3 (130-400); RED BLOOD COUNT 3.26 M/mm3 (4.20-5.60); REDCELL DISTRIBUTION WIDTH-CV 15.5 % (11.5-14.5)
[2019-05-26 07:51] LABS: HEMATOCRIT 31.9 % (42.0-52.0)
[2019-05-26 08:13] LABS: BAND 1 % (0-10); HYPOCHROMIA 1+; LYMPHOCYTE 22 % (20.0-51.0); NEUTROPHILS 71 % (42.0-75.2); PLATELET ESTIMATE NORMAL (NORMAL)
--- NOTE | 2019-05-26 08:30 | NUR ---
Patient in bed resting. Alert and oriented x 3. Shift assessment complete. Epidural site intact with drainage present. TPN infusing to left arm PICC line. NG clamped with green drainage noted in tubing. Midline incision with gauze dressing is CDI. Neph tube with clear yellow urine. Colostomy to right quadrant without output. Denies further needs at this time.
[2019-05-26 11:56] VITALS: BP 159/89; PULSE 103; TEMP 98.1
--- NOTE | 2019-05-26 15:50 | NUR ---
Notified Piedad BARKSDALE, Tele called patients HR increased to 120's. Patient was up ambulating with PT at the time, HR decreased to 100's once back in bed.
[2019-05-26 16:40] VITALS: BP 158/87; PULSE 107; TEMP 99.1
--- NOTE | 2019-05-26 18:29 | NUR ---
Patient has done well today, Has been up ambulating with PT. States he wasnt able to sleep well last night, has napped on and off today. TPN infusing per orders to AMBROSE PICC. Denies pain at this time. Epidural continues to infuse. Neph tube with adequate output. Colostomy with minimal output. Denies further needs at this time. Will report off to car shifter.
[2019-05-26 20:03] VITALS: BP 155/81; PULSE 95; TEMP 99.9
[2019-05-27] VITALS: BP 147/81; PULSE 98; TEMP 100.9
--- NOTE | 2019-05-27 03:28 | NUR ---
Patient continues with an epidural for pain control. Pain is managed with this. TPN running to AMBROSE PICC line. Nephro tube running to leg bag. Emptied 100ml from leg bag at about 2200. Small amount of semi-liquid stool in colostomy. Site cleansed and new bag applied. Appliance in place. Patient independent in the room. Denies needs. Noted to have a low grade temp off 99.9 at the beginning of the shift. Patient refused Tylenol suppository. At 0000 temp noted to be 100.5. Patient continues to refuse Tylenol suppository. Will continue to monitor.
[2019-05-27 04:08] VITALS: BP 150/82; PULSE 98; TEMP 99.9
[2019-05-27 06:18] LABS: MEAN CELL VOLUME 96 fl (80.0-100.0); MEAN CORPUSCULAR HGB CONC 32 g/dl (33.0-37.0); MEAN PLATELET VOLUME 12.3 fl (7.4-10.4); PLATELET COUNT 309 K/mm3 (130-400); REDCELL DISTRIBUTION WIDTH-CV 15.7 % (11.5-14.5)
[2019-05-27 06:27] LABS: CALCIUM 8.8 mg/dL (8.4-10.2); CREATININE, serum 1.37 (0.66-1.25); PHOSPHOROUS 2.9 mg/dL (2.5-4.5); POTASSIUM 4.2 mmol/L (3.4-5.0)
[2019-05-27 06:34] LABS: HEMATOCRIT 29.7 % (42.0-52.0); HEMOGLOBIN 9.5 g/dl (13.5-18.0); MEAN CORPUSCULAR HEMOGLOBIN 31 pg (27.0-31.0)
[2019-05-27 07:59] LABS: BAND 3 % (0-10); BASOPHIL 1 % (0-2); EOSINOPHIL 1 % (0-4); HYPOCHROMIA 1+; LYMPHOCYTE 12 % (20.0-51.0); NEUTROPHILS 72 % (42.0-75.2); PLATELET ESTIMATE NORMAL (NORMAL)
--- NOTE | 2019-05-27 08:00 | NUR ---
Patient in bed resting. Alert and oriented x 3. Family at bedside. Neph tube with clear yellow urine present. Colostomy with minimal output. NG clamped. Epidural infusing. SCDS to BLE. Denies pain at this time. Denies further needs at this time.
--- NOTE | 2019-05-27 08:07 | NUR ---
Notified Piedad BARKSDALE, Patient has temp of 100. Order for oral Tylenol given.
[2019-05-27 08:16] VITALS: BP 151/86; PULSE 100; TEMP 100.6
--- NOTE | 2019-05-27 09:27 | NUR ---
Patient ambulated with physical therapy, steady gait. Linens changed.
[2019-05-27 12:35] VITALS: BP 153/91; PULSE 98; TEMP 98.5
--- NOTE | 2019-05-27 13:20 | NUR ---
Patient up from OR. Alert and drowsy. Spouse at bedside. Higgins remains to dependent drainage with clear peach colored urine. Post op VSS. Denies pain at this time. Denies further needs at this time.
--- NOTE | 2019-05-27 15:18 | NUR ---
Patient had 500 Ml of green emisis. NG back to LIS. Contacted Piedad BARKSDALE to notify
[2019-05-27 17:13] VITALS: BP 182/94; PULSE 118; TEMP 99.5
--- NOTE | 2019-05-27 18:24 | NUR ---
Contacted Lanie BARKSDALE, Patient HR is increased to 120's. Order for EKG entered. Contacted Cardiopulmonary and notified of STAT EKG.
--- NOTE | 2019-05-27 19:12 | NUR ---
Lanie NECK SKEWER in to see patient. New orders entered. Contacted radiology for CT. Reported off to manufacturing shift supervisor.
[2019-05-27 19:25] LABS: MEAN CELL VOLUME 95 fl (80.0-100.0); MEAN CORPUSCULAR HEMOGLOBIN 31 pg (27.0-31.0); MEAN CORPUSCULAR HGB CONC 32 g/dl (33.0-37.0); MEAN PLATELET VOLUME 12.1 fl (7.4-10.4); PLATELET COUNT 307 K/mm3 (130-400); RED BLOOD COUNT 3.26 M/mm3 (4.20-5.60); REDCELL DISTRIBUTION WIDTH-CV 15.5 % (11.5-14.5)
[2019-05-27 19:35] LABS: BILIRUBIN,TOTAL 0.4 mg/dL (0.0-1.0); CALCIUM 9.2 mg/dL (8.4-10.2); CREATININE, serum 1.34 (0.66-1.25); POTASSIUM 4.1 mmol/L (3.4-5.0); TOTAL PROTEIN 7.1 gm/dL (6.4-8.2)
[2019-05-27 20:28] LABS: EOSINOPHIL 1 % (0-4); LYMPHOCYTE 13 % (20.0-51.0); NEUTROPHILS 77 % (42.0-75.2); PLATELET ESTIMATE NORMAL (NORMAL)
[2019-05-27 20:29] LABS: STOMATOCYTE 2+
[2019-05-27 20:50] VITALS: BP 164/99; PULSE 131; TEMP 99.4
[2019-05-28] VITALS (8 sets, daily range): BP systolic 130–174; BP diastolic 84–94; PULSE 95–120; TEMP 98–99.8
--- NOTE | 2019-05-28 00:33 | NUR ---
Patient noted to be tachycardic and hypertensive when this nurse came on shift. Lanie in room with patient. CT scan ordered and completed. Dr. Vivar called this nurse and stated the CT showed the NG was not in correct placement and it needed to be advanced about 10cm. This nurse explained this to the patient and advanced his NG tube. Patient noted to vomit about 200ml of green fluid and 200ml was immediately drained into suction canister. At start of the shift, canister was at 500ml. Canister full at 1000ml at about 2300. New canister placed. Patient's blood pressure is lower at midnight vitals than earlier in the shift, and heart rate is 115. Temperature has decreased to 99.8. Patient is resting comfortably. Denies any needs at this time.
--- NOTE | 2019-05-28 01:25 | NUR ---
Patient alerted this nurse that his shoulder was slightly wet. Noted that the epidural was leaking slightly from the connecting pieces. Anesthesia notified and they stated they would assess it when they come see patient. Patient's pain is still well controlled. Will continue to monitor.
--- NOTE | 2019-05-28 06:29 | NUR ---
Patient used chloraseptic spray and stated he might need some oxygen. When asked how he was feeling, he stated he had a weird feeling when he breathes and it was "almost difficult to breathe". Oxygen saturation at 95%. Lungs clear. No wheezes noted. Benadryl obtained, but patient stated he was starting to feel much better and refused dose. Chloraseptic spray removed from bedside. Will continue to monitor patient.
[2019-05-28 07:09] LABS: CALCIUM 9.3 mg/dL (8.4-10.2); CREATININE, serum 1.34 (0.66-1.25); POTASSIUM 3.9 mmol/L (3.4-5.0)
[2019-05-28 07:17] LABS: MEAN CELL VOLUME 95 fl (80.0-100.0); MEAN CORPUSCULAR HGB CONC 32 g/dl (33.0-37.0); MEAN PLATELET VOLUME 12.5 fl (7.4-10.4); PLATELET COUNT 311 K/mm3 (130-400); RED BLOOD COUNT 3.27 M/mm3 (4.20-5.60); REDCELL DISTRIBUTION WIDTH-CV 15.4 % (11.5-14.5)
[2019-05-28 07:26] LABS: HEMATOCRIT 31.2 % (42.0-52.0); HEMOGLOBIN 9.9 g/dl (13.5-18.0); MEAN CORPUSCULAR HEMOGLOBIN 30 pg (27.0-31.0)
[2019-05-28 10:22] LABS: BAND 3 % (0-10); LYMPHOCYTE 16 % (20.0-51.0); NEUTROPHILS 70 % (42.0-75.2)
[2019-05-28 10:25] LABS: PLATELET ESTIMATE NORMAL (NORMAL)
--- NOTE | 2019-05-28 18:00 | NUR ---
NG fell out early AM. Patient did not want NG replaced. No nausea or vomiting this shift. Took small amounts clear liquids. Minimal complaints of pain after epidural dc'd. Afebrile. Out in w/c in halls with family.
--- NOTE | 2019-05-28 19:42 | NUR ---
Pt resting in bed. No distress noted. Pt denies pain. Family at bedside. Respirations even and unlabored. Lungs clear. Abdomen soft, nontender. Rounded. BS are hypoactive x4. Pt denies nausea. LLQ colostomy. R side nephrostomy with leg bag. 12 hour urine in progress. AMBROSE PICC line with TPN infusing. Midline abdominal incision. [place] intact. Pt denies needs. Will continue to [facility].
[2019-05-29 02:34] LABS: 12 HR URINE TOTAL VOLUME 1.25 L
[2019-05-29 03:49] VITALS: BP 147/83; PULSE 94; TEMP 98.7
--- NOTE | 2019-05-29 06:00 | NUR ---
Pt resting this AM. No distress noted. Pt was given PRN pain medication previously for leg pain that he states he gets when he is not on chemo. Pain relieved. Pt denies nausea throuhgout the shift and only c/o abdominal pain x1. Pt has been up to the bathroom periodically. TPN infusing to AMBROSE PICC line. No needs noted.
[2019-05-29 06:27] LABS: CALCIUM 9.1 mg/dL (8.4-10.2); CREATININE, serum 1.25 (0.66-1.25); MAGNESIUM 1.9 mg/dL (1.6-2.3); PHOSPHOROUS 3.5 mg/dL (2.5-4.5); POTASSIUM 4.1 mmol/L (3.4-5.0)
--- NOTE | 2019-05-29 08:00 | NUR ---
Patient in bed resting, states he wasn't able to sleep well last night. Alert and oriented x3. Shift assessment complete. Patient states he is feeling better today. Tolerating clear liquids. Neph tube with clear yellow urine present. Colostomy with minimal output present in bag. Midline incision with ulysses intact, edges well approximated. SCDs to BLE. TPN infusing to AMBROSE PICC. Denies pain or further needs at this time.
[2019-05-29 08:06] LABS: MEAN CELL VOLUME 97 fl (80.0-100.0); MEAN CORPUSCULAR HGB CONC 32 g/dl (33.0-37.0); MEAN PLATELET VOLUME 12.9 fl (7.4-10.4); PLATELET COUNT 297 K/mm3 (130-400); RED BLOOD COUNT 2.99 M/mm3 (4.20-5.60); REDCELL DISTRIBUTION WIDTH-CV 15.8 % (11.5-14.5)
[2019-05-29 08:07] LABS: HEMATOCRIT 29.1 % (42.0-52.0); HEMOGLOBIN 9.2 g/dl (13.5-18.0); MEAN CORPUSCULAR HEMOGLOBIN 31 pg (27.0-31.0)
[2019-05-29 08:09] VITALS: BP 142/93; PULSE 104; TEMP 98.2
[2019-05-29 09:10] LABS: BAND 5 % (0-10); EOSINOPHIL 1 % (0-4); LYMPHOCYTE 17 % (20.0-51.0); NEUTROPHILS 67 % (42.0-75.2); PLATELET ESTIMATE NORMAL (NORMAL)
--- NOTE | 2019-05-29 12:00 | NUR ---
SW attended clinical rounding. Patient is still on TPN but is taking clears and tolerating. He is walking 300 ft and PT is recommending home. SW will continue to follow to assist with any dc needs.
--- NOTE | 2019-05-29 12:00 | NUR ---
Contacted radiology patient has order for venous duplex US
[2019-05-29 12:17] VITALS: BP 155/97; PULSE 96; TEMP 98.4
--- NOTE | 2019-05-29 14:00 | NUR ---
Contacted Ultrasound for carmen US.
[2019-05-29 15:43] VITALS: BP 146/95; PULSE 94; TEMP 98.7
--- NOTE | 2019-05-29 18:48 | NUR ---
Patient has done well today. Has been up ambulating in halls. Colostomy with small amount of BM present in bag. TPN continues to infuse to AMBROSE PICC. Continues to tolerate clear liquids without nausea/vomiting. Reported off to office support.
--- NOTE | 2019-05-29 18:57 | NUR ---
Pt resting in bed. Family at bedside. Pt denies pain or discomfort. No distress noted. VSS. Afebrile. REspirations even and unlabored. Lungs clear. Abdomen soft, nontender. BS hypoactive x4. Midline abdominal incision open to air- ulysses intact. LLQ colostomy with small amount of output. R nephrostomy tube draining clear, yellow urine. Pt denies nausea and has tolerated a clear liquid diet. Pt states he has been up several times today ambulating. TPN infusing to AMBROSE PICC line. No further needs noted at this time. Will continue to monitor.
[2019-05-29 19:19] VITALS: BP 165/93; PULSE 102; TEMP 99.4
--- NOTE | 2019-05-29 22:05 | NUR ---
Update provided to Dr. Garcia on patients condition.
[2019-05-30 00:42] VITALS: BP 149/87; PULSE 97; TEMP 100.2
--- NOTE | 2019-05-30 00:48 | NUR ---
Pt was medicated for BLE pain. Pts temperature is also slightly elevated at 100.2. Pt encouraged to use IS. Pt denies nausea or abdominal pain. No needs noted. Will continue to monitor.
[2019-05-30 04:57] VITALS: BP 153/93; PULSE 101; TEMP 99
--- NOTE | 2019-05-30 05:00 | NUR ---
Pt reports that he woke up and was very thirsty and when he went to grab his water cup, he suddenly became nauseated and vomited in an emesis bag. The Nurses aide disposed of the emesis before the nurse could see it, but he measured it to be 150 mL and he described it as greenish. The patient denies any residual nausea or any pain currently. LLQ colostomy has some output, as well. VSS. Will continue to monitor.
--- NOTE | 2019-05-30 06:00 | NUR ---
Labs drawn from PICC line and caps changed. Pt denies pain at this time. He reports that he slept ok last night. Pt denies any nausea.
[2019-05-30 06:40] LABS: MEAN CELL VOLUME 97 fl (80.0-100.0); MEAN CORPUSCULAR HGB CONC 31 g/dl (33.0-37.0); MEAN PLATELET VOLUME 12.5 fl (7.4-10.4); PLATELET COUNT 316 K/mm3 (130-400); RED BLOOD COUNT 3.17 M/mm3 (4.20-5.60); REDCELL DISTRIBUTION WIDTH-CV 15.5 % (11.5-14.5)
[2019-05-30 06:49] LABS: CALCIUM 9.1 mg/dL (8.4-10.2); CREATININE, serum 1.33 (0.66-1.25); POTASSIUM 4.3 mmol/L (3.4-5.0)
[2019-05-30 06:56] LABS: HEMATOCRIT 30.6 % (42.0-52.0); HEMOGLOBIN 9.6 g/dl (13.5-18.0); MEAN CORPUSCULAR HEMOGLOBIN 30 pg (27.0-31.0)
--- NOTE | 2019-05-30 07:19 | NUR ---
report from Arely RIVERS.
--- NOTE | 2019-05-30 07:23 | NUR ---
Contacted Suzanne in Vascular Lab and she reported that the results were negative yesterday.
[2019-05-30 08:00] VITALS: BP 146/86; PULSE 101; TEMP 98.7
[2019-05-30 08:24] LABS: BAND 2 % (0-10); BASOPHIL 2 % (0-2); NEUTROPHILS 61 % (42.0-75.2)
[2019-05-30 08:26] LABS: PLATELET ESTIMATE NORMAL (NORMAL)
[2019-05-30 08:28] LABS: LYMPHOCYTE 26 % (20.0-51.0)
--- NOTE | 2019-05-30 11:21 | NUR ---
PURPLE PICC LINE WILL NOT FLUSH, RICKIE RIVERS TRIED UNSUCCESFUL, JACIEL RIVERS NOTIFIED AND WILL CHECK. CATH FLOW ORDER RECIEVED FROM DRU HORAN.
[2019-05-30 11:24] VITALS: BP 145/88; PULSE 97; TEMP 98.3
--- NOTE | 2019-05-30 11:55 | NUR ---
PICC intact left upper arm. With sterile technique left upper arm PICC dressing change done with insertion site cleansed with ChloraPrep 1, chlorhexidine impregnated disc applied, skin prep, StatLock, and Tegaderm applied. Unable to flush. Report. RN to instill catheter flow.
--- NOTE | 2019-05-30 12:26 | NUR ---
CATH FLOW ORDER RECIEVED AND USED. INSTILLED 2ML DIRECTED BY JACIEL RIVERS IV SERVICES NOW WAITING FOR 30 MINS
--- NOTE | 2019-05-30 12:58 | NUR ---
RECHECKED PURPLE PORT 1/2 HR AFTER PLACING CATHFLO AND NO RETURN YET. WILL NOW RECHECK AT 90 MINS.
[2019-05-30 17:54] VITALS: BP 140/97; PULSE 97; TEMP 98.6
[2019-05-30 19:25] VITALS: BP 152/94; PULSE 97; TEMP 98.2
--- NOTE | 2019-05-30 21:00 | NUR ---
Vannesa KIRKLAND reviewed and begun. Requested tramadol prior to sleep for prevention of pain. Denies pain at this time. Incontinent of large amount of urine in pullup and changes and cleans self. Has small amount black stool in ostomy bag and small amount clear yellow urine in urostomy bag. Stands at bedside while STOCK CHECKERER changes linen.
[2019-05-31] VITALS (7 sets, daily range): BP systolic 123–149; BP diastolic 62–96; PULSE 54–114; TEMP 98.1–99.6
--- NOTE | 2019-05-31 00:48 | NUR ---
Patient rests with eyes closed. Respirations with ease.
--- NOTE | 2019-05-31 02:20 | NUR ---
Patient rests with eyes closed. Respirations with ease. TPN at 109mls/hr.
--- NOTE | 2019-05-31 05:30 | NUR ---
Patient incontinent of urine but declines changing at this time. "I just want to sleep right now". Patient initially resting with eyes closed.
[2019-05-31 06:06] LABS: MEAN CELL VOLUME 95 fl (80.0-100.0); MEAN CORPUSCULAR HGB CONC 32 g/dl (33.0-37.0); MEAN PLATELET VOLUME 12.1 fl (7.4-10.4); PLATELET COUNT 322 K/mm3 (130-400); RED BLOOD COUNT 3.18 M/mm3 (4.20-5.60); REDCELL DISTRIBUTION WIDTH-CV 15.4 % (11.5-14.5)
[2019-05-31 06:07] LABS: HEMATOCRIT 30.1 % (42.0-52.0); HEMOGLOBIN 9.6 g/dl (13.5-18.0); MEAN CORPUSCULAR HEMOGLOBIN 30 pg (27.0-31.0)
[2019-05-31 06:14] LABS: ALBUMIN 3.1 gm/dL (3.5-5.0); BILIRUBIN,TOTAL 0.3 mg/dL (0.0-1.0); CALCIUM 8.8 mg/dL (8.4-10.2); CREATININE, serum 1.43 (0.66-1.25); MAGNESIUM 2.2 mg/dL (1.6-2.3); PHOSPHOROUS 3.9 mg/dL (2.5-4.5); POTASSIUM 4.3 mmol/L (3.4-5.0); TOTAL PROTEIN 7.6 gm/dL (6.4-8.2)
[2019-05-31 06:52] LABS: BAND 7 % (0-10); BASOPHIL 2 % (0-2); EOSINOPHIL 2 % (0-4); LYMPHOCYTE 18 % (20.0-51.0); NEUTROPHILS 55 % (42.0-75.2); PLATELET ESTIMATE NORMAL (NORMAL)
--- NOTE | 2019-05-31 07:00 | NUR ---
Report from Abril RIVERS.
--- NOTE | 2019-05-31 10:16 | NUR ---
PT UP AMBULATING WITH THERAPY. NEPHROSTOMY TUBE WITH LEAKAGE AROUND INSERTION SITE. 200 MLS URINE REMOVED FROM BAG. PT SHOWERED WITH SET UP ASSIST.
--- NOTE | 2019-05-31 10:31 | NUR ---
Patient ambulated halls with therapy. Patient assisted in shower. New dressing applied to neph tube site. Patient assisted with with fresh linens. Thankful for care.
--- NOTE | 2019-05-31 11:50 | NUR ---
ANN REMOVED FROM INCISION. EDGES WELL APPROXIMATED. PT TOLERATED WELL.
--- NOTE | 2019-05-31 19:00 | NUR ---
Report received from Caleb RIVERS. Patient resting in bed and male visitor in. Patient denies pain or needs. TPN infusing 110 mls/hr.
--- NOTE | 2019-05-31 22:50 | NUR ---
Patient requested tramadol at this time for preventitive pain and for pain slight pain hips and buttucks, given.
--- NOTE | 2019-05-31 23:00 | NUR ---
Urostomy bag emptied 400mls clear yellow urine. Patient reports he was just up and changed his brief due to incontinent urine. Declines gown being changed at this time and requests to wait until am to empty ostomy bag. Visitor in earlier gone for the night.
[2019-06-01 04:00] VITALS: BP 143/85; PULSE 108; TEMP 98.5
[2019-06-01 05:44] LABS: HEMOGLOBIN 10.1 g/dl (13.5-18.0); MEAN CELL VOLUME 95 fl (80.0-100.0); MEAN CORPUSCULAR HEMOGLOBIN 30 pg (27.0-31.0); MEAN CORPUSCULAR HGB CONC 32 g/dl (33.0-37.0); MEAN PLATELET VOLUME 11.9 fl (7.4-10.4); PLATELET COUNT 354 K/mm3 (130-400); RED BLOOD COUNT 3.36 M/mm3 (4.20-5.60); REDCELL DISTRIBUTION WIDTH-CV 15.4 % (11.5-14.5)
[2019-06-01 05:45] LABS: HEMATOCRIT 31.8 % (42.0-52.0)
--- NOTE | 2019-06-01 05:49 | NUR ---
Patient reports rested off and on through the night. Colostomy bag full of dk brown/black liquid slightly soft bm and bag removed/changed. Patient states will get up and change pullup after he has his first cup of coffee this am. Lab drawn from Pic[facility].
[2019-06-01 05:57] LABS: CREATININE, serum 1.34 (0.66-1.25); POTASSIUM 4.8 mmol/L (3.4-5.0)
[2019-06-01 06:18] LABS: ANISOCYTOSIS 1+; BAND 7 % (0-10); EOSINOPHIL 4 % (0-4); LYMPHOCYTE 26 % (20.0-51.0); NEUTROPHILS 55 % (42.0-75.2); PLATELET ESTIMATE NORMAL (NORMAL)
--- NOTE | 2019-06-01 07:00 | NUR ---
Report from Abril RIVERS.
[2019-06-01 08:13] VITALS: BP 132/90; PULSE 100; TEMP 98.8
--- NOTE | 2019-06-01 09:05 | NUR ---
SW attended clinical rounding. Patient is doing well and is going to dc home today. PT is recommending home and patient feels comfortable with this plan.
--- NOTE | 2019-06-01 09:16 | NUR ---
Initial visit; Patient thanked Cancellation Clerk for looking in on him and offering God's blessings.
[2019-06-01] MEDS ORDERED: TOPROL XL 50MG50 MG PO (09:43)
[2019-06-01] MEDS ORDERED: ZOFRAN ODT4 MG PO (09:44)
[2019-06-01] MEDS ORDERED: ULTRAM 50MG TAB50 MG PO (09:44)
[2019-06-01] MEDS ORDERED: TYLENOL 325MG325 MG PO (09:44)
[2019-06-01 11:38] VITALS: BP 126/87; PULSE 104; TEMP 98.3
[2019-06-01] MEDS ORDERED: CIPRO 500MG TA500 MG PO (11:38)
--- NOTE | 2019-06-01 16:11 | NUR ---
DISCHARGE INSTRUCTIONS PROVIDED TO PATIENT AND FAMILY. QUESTIONS SOLICITED AND ANSWERED. PT TAKEN BY WHEEL CHAIR TO FRONT.
== END 2019-06-01 15:10 | disposition home or self-care (01) | DRG 854 ==
LOC: COL.ER 18:25 → SURG 20:31 → ICU 20:31 → SURG 05-18 18:18
PROVIDERS: Emergency Medicine; Internal Medicine; Nurse Practitioner Family; Physician Assistant; Student in an Organized Health Care Education/Training Program; Urology; ADMIT Hospitalist
PROC: 0TJB8ZZ Inspection of Bladder, Via Natural or Artificial Opening Endoscopic (ICD-10-PCS; 2019-05-15)
PROC: 0T9030Z Drainage of Right Kidney with Drainage Device, Percutaneous Approach (ICD-10-PCS; 2019-05-16)
PROC: BT111ZZ Fluoroscopy of Right Kidney using Low Osmolar Contrast (ICD-10-PCS; 2019-05-16)
PROC: 02HV33Z Insertion of Infusion Device into Superior Vena Cava, Percutaneous Approach (ICD-10-PCS; principal; 2019-05-16 16:45)
PROC: 0DB80ZZ Excision of Small Intestine, Open Approach (ICD-10-PCS; 2019-05-22)
PROC: 0DQ80ZZ Repair Small Intestine, Open Approach (ICD-10-PCS; 2019-05-22)
DX: A41.51 Sepsis due to Escherichia coli [E. coli] (principal); N39.0 Urinary tract infection, site not specified; N17.9 Acute kidney failure, unspecified; E87.2 Acidosis; N13.1 Hydronephrosis with ureteral stricture, not elsewhere classified; K91.71 Accidental puncture and laceration of a digestive system organ or structure during a digestive system procedure; K56.52 Intestinal adhesions [bands] with complete obstruction; I47.2 Ventricular tachycardia; C78.00 Secondary malignant neoplasm of unspecified lung; C78.6 Secondary malignant neoplasm of retroperitoneum and peritoneum; K56.7 Ileus, unspecified; E46 Unspecified protein-calorie malnutrition; R65.20 Severe sepsis without septic shock; G44.009 Cluster headache syndrome, unspecified, not intractable; D64.9 Anemia, unspecified; I10 Essential (primary) hypertension; Z87.891 Personal history of nicotine dependence; Z85.46 Personal history of malignant neoplasm of prostate; E87.6 Hypokalemia; Z85.038 Personal history of other malignant neoplasm of large intestine; R53.81 Other malaise
CPT/HCPCS: 99231-AI; 99232-AI; 99233-AI; 99239; A4216; A9284; C1751; C1769; C9113; J0360; J0610; J0696; J1170; J1450; J1644; J1650; J1720; J2060; J2185; J2270; J2405; J2543; J2550; J2704; J2795; J2997; J3010; J3475; J3480; J7030; J7120; J7131; Q9967

== ENCOUNTER 2019-06-25 12:44 | Day surgery (SDC) | payer BC ==
[~2019-06-25] VITALS: Ht 182.9 cm; Wt 85.9 kg
[~2019-06-25 12:44] MED LIST changes: +ASPIRIN 81M81 MG/TA2 PO; +CIPRO 500MG TA500 MG PO; +LEVAQUIN 5500 MG/TA1 PO; +RAPAFLO8 MG PO; +TOPROL XL 50MG50 MG PO; +TYLENOL 325MG325 MG PO; +ULTRAM 50MG TAB50 MG PO; +ZOFRAN ODT4 MG PO
[2019-06-25 13:13] VITALS: BP 129/82; PULSE 96; TEMP 98.1
--- NOTE | 2019-06-25 14:30 | NUR ---
Patient alert and oriented, answers questions appropriately. See initial assessment. Ostomy in place to LLQ. Nephrostomy tube in place to right flank. Scrotom with redness and drainage noted, intermittent pain to area, warm to touch. No other c/o at this time.
--- NOTE | 2019-06-25 14:35 | NUR ---
Patient to surgery.
[2019-06-25 15:34] VITALS: BP 112/66; PULSE 68; TEMP 98.1
--- NOTE | 2019-06-25 15:37 | NUR ---
Patient returns from surgery, assessment unchanged except for packing and gauze to scrotal abscess site, mesh panties in place. No c/o at this time. Requests to discharge.
[2019-06-25 15:43] VITALS: TEMP 99.4
[2019-06-25 15:49] VITALS: BP 119/65; PULSE 88
[2019-06-25 16:04] VITALS: BP 124/78; PULSE 84
[2019-06-25 16:19] VITALS: BP 123/74; PULSE 80
--- NOTE | 2019-06-25 16:31 | NUR ---
Discharge instructions reviewed with patient and spouse, verbalized understanding. Discharged via wheelchair to auto/home with spouse at 1630.
--- NOTE | 2019-06-26 16:42 | NUR ---
die out worker was able to be directed to [facility], who states they may be able to order ostomy supplies for patient. Worker contacted patient's spouse and gave her this information and [facility]'s number. Worker is also awaiting call from Dr Rico's manager gyn for assistance. Spouse states that Dr Chery advised that drains need to be changed every 2 weeks.
== END 2019-06-25 16:30 | disposition home or self-care (01) ==
LOC: SURG 12:44 → SDCO 12:44
DX: L02.215 Cutaneous abscess of perineum (principal); Z85.038 Personal history of other malignant neoplasm of large intestine; Z85.46 Personal history of malignant neoplasm of prostate; Z79.899 Other long term (current) drug therapy; Z79.82 Long term (current) use of aspirin; I12.9 Hypertensive chronic kidney disease with stage 1 through stage 4 chronic kidney disease, or unspecified chronic kidney disease; N18.9 Chronic kidney disease, unspecified; E78.5 Hyperlipidemia, unspecified; Z87.891 Personal history of nicotine dependence; G44.009 Cluster headache syndrome, unspecified, not intractable; Z86.73 Personal history of transient ischemic attack (TIA), and cerebral infarction without residual deficits; Z93.3 Colostomy status; Z92.3 Personal history of irradiation; N52.9 Male erectile dysfunction, unspecified; R35.0 Frequency of micturition; Z92.21 Personal history of antineoplastic chemotherapy
CPT/HCPCS: OP; J0690; J1100; J2405; J2704; J3010; J7120

== ENCOUNTER → 2019-09-15 | Outpatient (CLI) | payer BC ==
[~2019-09-15] VITALS: Ht 182.9 cm; Wt 86.0 kg
[~2019-09-15] MED LIST changes: +IRON TABLETS325 MG PO; +TOPROL XL100 MG PO; +VITAMIN B122500 MCG SL
[2019-09-15 09:17] VITALS: BP 123/77; PULSE 87
[2019-09-15 11:30] VITALS: BP 154/98; PULSE 94
--- NOTE | 2019-09-15 11:41 | NUR ---
PT LEAVES AMBULATORY TO POV
== END ==
LOC: COL.RAD 08:58
DX: N13.39 Other hydronephrosis (principal)
CPT/HCPCS: C1729; Q9967

== ENCOUNTER 2019-12-20 16:58 | Emergency (ER) | payer BC ==
[~2019-12-20] VITALS: Ht 183 cm; Wt 88.2 kg
[2019-12-20 17:08] VITALS: BP 133/80; PULSE 131; TEMP 97.4
== END 2019-12-20 17:55 | disposition left against medical advice (07) ==
LOC: COL.ER 16:58
DX: R10.9 Unspecified abdominal pain (principal); R11.10 Vomiting, unspecified; Z85.038 Personal history of other malignant neoplasm of large intestine

== ENCOUNTER 2020-01-15 14:41 | Inpatient (IN) | payer BC ==
[~2020-01-15] VITALS: Ht 182.9 cm; Wt 80.3 kg
[2020-01-15 16:23] LABS: BASO % 0.3 % (0.0-2.0); EOS # 0.1 (0.0-0.7); EOS % 0.4 % (0-4.0); GRAN # 9.9 (1.4-6.5); GRAN % 70.4 % (42.2-75.2); HEMOGLOBIN 10.4 g/dl (13.5-18.0); LYMPH # 2.7 (1.2-3.4); LYMPH % 19.1 % (20.0-51.0); MEAN CELL VOLUME 91 fl (80.0-100.0); MEAN CORPUSCULAR HEMOGLOBIN 29 pg (27.0-31.0); MEAN CORPUSCULAR HGB CONC 31 g/dl (33.0-37.0); MEAN PLATELET VOLUME 10.3 fl (7.4-10.4); MONO # 1.3 (0.1-0.6); MONO % 9.3 % (1.7-9.3); PLATELET COUNT 580 K/mm3 (130-400); RED BLOOD COUNT 3.65 M/mm3 (4.20-5.60); REDCELL DISTRIBUTION WIDTH-CV 16.1 % (11.5-14.5)
[2020-01-15 16:26] LABS: HEMATOCRIT 33.1 % (42.0-52.0)
[2020-01-15] MEDS ORDERED: CIPRO 500MG TA500 MG PO (16:32)
[2020-01-15 16:37] LABS: BILIRUBIN,TOTAL 0.5 mg/dL (0.0-1.0); CALCIUM 10.3 mg/dL (8.4-10.2); CREATININE, serum 1.63 (0.66-1.25); TOTAL PROTEIN 8.6 gm/dL (6.4-8.2)
[2020-01-15 16:42] LABS: COLLECTION METHOD CLEAN CATCH
[2020-01-15 16:51] LABS: MUCOUS Present /lpf; PH 5 (5-8); SQUAMOUS EPITHELIAL 0-2 /hpf; URINE APPEARANCE Cloudy; URINE BACTERIA Rare /hpf; URINE BILIRUBIN Negative (NEGATIVE); URINE BLOOD Negative (NEGATIVE); URINE COLOR Yellow; URINE GLUCOSE Negative (NEGATIVE); URINE KETONE Negative (NEGATIVE); URINE LEUKOCYTE ESTERASE 3+ (NEGATIVE); URINE NITRATE Negative (NEGATIVE); URINE PROTEIN(semi-quant) 1+ (NEGATIVE); URINE UROBILINOGEN Negative (NEGATIVE)
[2020-01-15 16:51] LABS: C-REACTIVE PROTEIN 26.2 mg/dL (0.0-0.9)
--- NOTE | 2020-01-15 19:45 | NUR ---
Pt arrived to room 314, transferred by ED staff. Pt awake, a&o, cooperative c cares. Pt denies c/o at this time. Portacath noted, patent; does not give blood return but pt reports this is a chronic problem et placement was checked c imaging in ED. Pt oriented to room, unit policies et current POC. Questions invited et answered, pt verbalizes understanding. Pt denies needs at this time. Call light in reach, will continue c admit process.
[2020-01-15] MEDS ORDERED: NORCO 325 MG-7.1 TAB PO (20:01)
[2020-01-15] MEDS ORDERED: TOPROL XL 50MG50 MG PO (20:02)
[2020-01-15 20:06] VITALS: BP 113/59; PULSE 92; TEMP 97.7
[2020-01-15 23:10] VITALS: BP 106/59; PULSE 75; TEMP 97.3
[2020-01-16 03:39] VITALS: BP 116/66; PULSE 79; TEMP 97.9
--- NOTE | 2020-01-16 06:45 | NUR ---
Pt resting in bed, condition unchanged. Pt has rested well since admit c few need. Chronic foot pain well controlled c PRN [place] x2 doses. Pt has denied other c/o. Pt denies needs at this time. Bedside shift report given to Gautam RIVERS to assume pt cares.
[2020-01-16 08:10] LABS: BASO % 0.4 % (0.0-2.0); EOS # 0.2 (0.0-0.7); EOS % 1.6 % (0-4.0); GRAN # 6.4 (1.4-6.5); GRAN % 68.5 % (42.2-75.2); LYMPH # 1.6 (1.2-3.4); MEAN CELL VOLUME 91 fl (80.0-100.0); MEAN CORPUSCULAR HGB CONC 31 g/dl (33.0-37.0); MEAN PLATELET VOLUME 11.4 fl (7.4-10.4); MONO # 1.1 (0.1-0.6); MONO % 11.9 % (1.7-9.3); REDCELL DISTRIBUTION WIDTH-CV 16.1 % (11.5-14.5)
[2020-01-16 08:21] LABS: CALCIUM 9.4 mg/dL (8.4-10.2); CREATININE, serum 1.27 (0.66-1.25)
[2020-01-16 08:26] LABS: HEMATOCRIT 30.8 % (42.0-52.0); HEMOGLOBIN 9.4 g/dl (13.5-18.0); MEAN CORPUSCULAR HEMOGLOBIN 28 pg (27.0-31.0); PLATELET COUNT 449 K/mm3 (130-400)
[2020-01-16 08:42] VITALS: BP 124/73; PULSE 83; TEMP 97.9
--- NOTE | 2020-01-16 09:12 | NUR ---
Assessment completed, alert/oriented, vital signs stable/ afebrile, denies any pain or discomfort this morning, consulting urology for chronic hydronephrosis/nephrostomy tube evaluation, patient denies any urination difficulty or any flank pain, heart RRR, lungs CTA, patient is hoping to be discharged home today, denies other needs at this time
--- NOTE | 2020-01-16 09:28 | NUR ---
SW met with the patient to discuss discharge plan. The patient lives in [place] with his (Helen, ph#[phone]) and son. He reports independence with ADLs and does not have any DME. The patient's PCP is Dr. John Geiger and he receives his medications at [facility]. He reports no difficulties obtaining his meds. The patient does not have advanced directives in EMR, but he states that he does have them completed. He states that his is his DPOA-HC. The patient plans to return home with his and son upon discharge. No additional needs at this time.
--- NOTE | 2020-01-16 11:21 | NUR ---
Initial visit; Patient thanked [employer] for offfering spiritual care especially prayer and keeping him in [employer]'s prayers.
[2020-01-16 12:06] VITALS: BP 113/64; PULSE 82; TEMP 98.3
[2020-01-16 17:56] VITALS: BP 139/74; PULSE 100; TEMP 101.7
--- NOTE | 2020-01-16 19:50 | NUR ---
Shift assessment complete. Pt resting in bed, awake, a&o, cooperative c cares. Pt reports continued chronic pain to RLE/foot, PRN pain med recently admin per pt req. Pt denies any other c/o. Portacath noted to R chest, patent though does not give blood return which is a chronic issue. Neph tube noted to R flank, s complication. Pt denies further needs. Call light in reach, will continue to monitor.
[2020-01-16 21:00] VITALS: BP 116/72; PULSE 94; TEMP 99.2
[2020-01-17] VITALS (7 sets, daily range): BP systolic 118–141; BP diastolic 65–77; PULSE 84–106; TEMP 97.4–102.8
[2020-01-17 07:15] LABS: BASO % 0.3 % (0.0-2.0); EOS # 0.1 (0.0-0.7); EOS % 0.5 % (0-4.0); GRAN # 9.7 (1.4-6.5); GRAN % 74.1 % (42.2-75.2); LYMPH # 1.9 (1.2-3.4); LYMPH % 14.2 % (20.0-51.0); MEAN CELL VOLUME 91 fl (80.0-100.0); MEAN CORPUSCULAR HGB CONC 31 g/dl (33.0-37.0); MEAN PLATELET VOLUME 10.9 fl (7.4-10.4); MONO # 1.4 (0.1-0.6); MONO % 10.4 % (1.7-9.3); PLATELET COUNT 464 K/mm3 (130-400); RED BLOOD COUNT 2.93 M/mm3 (4.20-5.60); REDCELL DISTRIBUTION WIDTH-CV 16.2 % (11.5-14.5)
[2020-01-17 07:18] LABS: HEMATOCRIT 26.7 % (42.0-52.0); HEMOGLOBIN 8.2 g/dl (13.5-18.0); MEAN CORPUSCULAR HEMOGLOBIN 28 pg (27.0-31.0)
[2020-01-17 07:29] LABS: CREATININE, serum 1.39 (0.66-1.25); POTASSIUM 3.7 mmol/L (3.4-5.0)
--- NOTE | 2020-01-17 08:00 | NUR ---
PATIENT IS A&O. NOTED LOW GRADE TEMP OF 99.3, ALL OTHER VSS. WBC OF13.1, CREATININE 1.39, HGB 8.2 NOTED. PATIENT C/O PAIN IN BLE FEET DESCRIBED NERVE PAIN FROM HIS CANCER TREATMENTS. GAVE PRN NORCO, TWO TABS WITH AM MEDS. PATIENT HAS HX OF COLON/RECTAL CA, COLOSTOMY PATENT WITH STOOL. PATIENT ALSO ADMITED WITH A RIGHT NEPH TUBE WHICH HE PROVIDES ALL HIS OWN SELF CARES FOR HIS NEPH TUBE & COLOSTOMY. NO C/O N/V. TOLERATING DIET. HEAD TO TOE ASSESSMENT COMPLETE. PATIENT REFUSED SUBQ HEPARIN FOR VTE. HEAD TO TOE ASSESSMENT COMPLETE. INDEPENDENT IN ROOM. NO OTHER NEEDS. CALL LIGHT IN REACH.
--- NOTE | 2020-01-17 11:58 | NUR ---
Follow-up visit; Patient indisposed, Post Tronic Machine Operator spoke to family member, letting her know of the availability of spiritual care and at the same time wished Reinier a good day.
--- NOTE | 2020-01-17 16:50 | NUR ---
PATIENT SPIKED ANOTHER FEVER OF 102 AFTER BEING AFEBRILE ALL DAY. GAVE PRN TYLENOL, TWO TABS. SON, WHO IS A MD IS AT BEDSIDE. DISCUSSED PATIENT'S STATUS WITH SON. PATIENT SLEEPING.
--- NOTE | 2020-01-17 18:15 | NUR ---
CALLED HOSPITALIST WITH PATIENT STATUS UPDATE. PATIENT SB IN 40-50'S ON TELE. ASYMPTOMATIC. PATIENT RESTING IN BED. B/P WNL. WILL MONITOR
--- NOTE | 2020-01-17 19:30 | NUR ---
Initial shift assessment done-having foot pain 05/01- will give [place]ville as ordered. Has colostomy- does his own care. Also has nephrostomy tube to right flank- to leg bag, anabela color. Temp down to 99.0 IV fluids of NS at 75cc/hr
[2020-01-18 03:11] VITALS: BP 134/70; PULSE 115; TEMP 97.6
--- NOTE | 2020-01-18 05:42 | NUR ---
Quiet night- no requests,, afebrile
[2020-01-18 05:54] LABS: MEAN CELL VOLUME 91 fl (80.0-100.0); MEAN CORPUSCULAR HGB CONC 31 g/dl (33.0-37.0); MEAN PLATELET VOLUME 10.8 fl (7.4-10.4); PLATELET COUNT 497 K/mm3 (130-400); RED BLOOD COUNT 2.95 M/mm3 (4.20-5.60); REDCELL DISTRIBUTION WIDTH-CV 16.3 % (11.5-14.5)
[2020-01-18 05:57] LABS: HEMATOCRIT 26.9 % (42.0-52.0); HEMOGLOBIN 8.3 g/dl (13.5-18.0); MEAN CORPUSCULAR HEMOGLOBIN 28 pg (27.0-31.0)
[2020-01-18 06:09] LABS: CALCIUM 8.9 mg/dL (8.4-10.2); CREATININE, serum 2.02 (0.66-1.25); POTASSIUM 3.7 mmol/L (3.4-5.0)
[2020-01-18 06:56] LABS: ANISOCYTOSIS 1+; BAND 9 % (0-10); HYPOCHROMIA 2+; LYMPHOCYTE 11 % (20.0-51.0); MICROCYTOSIS 1+; NEUTROPHILS 72 % (42.0-75.2); OVALOCYTES 1+; PLATELET ESTIMATE INCREASED (NORMAL); POIKILOCYTOSIS 1+
[2020-01-18 08:02] LABS: PATHOLOGY DIFF REVIEW OK
[2020-01-18 08:53] VITALS: BP 127/71; PULSE 97; TEMP 99.3
--- NOTE | 2020-01-18 11:01 | NUR ---
Assessment complete. Patient lying in bed resting awaiting his CT scan. Pt is alert and oriented. Patient is aware of his plan of care. [facility] site looks good, CD&I. IV fluids running at 75 ml/hr. Fluids stopped prior to CT scan per their request. States his left foot is hurting him but he does not want to take any medications until he gets back from his scan. No further needs were expressed at this time. Call light is within reach.
--- NOTE | 2020-01-18 11:13 | NUR ---
Pt down to CT scan at this time.
[2020-01-18 12:51] VITALS: BP 129/74; PULSE 115; TEMP 99
--- NOTE | 2020-01-18 15:31 | NUR ---
Vancomycin Initial Dosing Pharmacy Note Ordering provider: Nubia Indication/duration: GI/Abdominal Infection LABS: Creatinine 2.02, est crcl of 40 mL/min Recommendation: 1.5 gram load, 750 mg IV q12h, follow daily labs, trough scheduled for 01/20/20 @ 1530 Loading dose: 1.5 grams Maintenance dose: 750 mg every 12 hours Trough goal: 15-20 ug/mL
[2020-01-18 17:20] VITALS: BP 122/48; PULSE 107; TEMP 99.5
--- NOTE | 2020-01-18 18:38 | NUR ---
Pt had an uneventful day. Pain in his foot bothered him all day, PRN pain medication provided. Pt is aware of POC. Was pleasant all day. Some swelling in his left foot which is not normal is noted but that is where he feels his pain. No further needs at this time.
[2020-01-18 20:00] VITALS: BP 116/62; PULSE 96; TEMP 98.9
--- NOTE | 2020-01-18 20:30 | NUR ---
Initial shift assessment done- denies need for pain meds at this time- states foot pain 01/29, visiting with family/friends, no requests, instructed to measure urine from nephrostomy tube- pt states understanding , IV fluids of NS at 125cc/hr
[2020-01-18 23:48] VITALS: BP 120/64; PULSE 95; TEMP 99.4
[2020-01-19] VITALS (14 sets, daily range): BP systolic 117–152; BP diastolic 64–85; PULSE 75–111; TEMP 98.3–100.8
--- NOTE | 2020-01-19 05:55 | NUR ---
Quiet night- max temp tonight 100.8 , did get Imogene twice during this shift for foot pain. NPO for CT of abd/pelvis with contrast today-
[2020-01-19 06:56] LABS: CALCIUM 8.9 mg/dL (8.4-10.2); CREATININE, serum 1.7 (0.66-1.25); POTASSIUM 3.6 mmol/L (3.4-5.0)
[2020-01-19 07:00] LABS: BASO % 0.2 % (0.0-2.0); EOS # 0.1 (0.0-0.7); GRAN # 10.9 (1.4-6.5); GRAN % 77.3 % (42.2-75.2); LYMPH # 1.6 (1.2-3.4); LYMPH % 11.6 % (20.0-51.0); MEAN CELL VOLUME 91 fl (80.0-100.0); MEAN CORPUSCULAR HGB CONC 31 g/dl (33.0-37.0); MEAN PLATELET VOLUME 10.9 fl (7.4-10.4); MONO # 1.3 (0.1-0.6); MONO % 9.3 % (1.7-9.3); PLATELET COUNT 425 K/mm3 (130-400); RED BLOOD COUNT 2.57 M/mm3 (4.20-5.60); REDCELL DISTRIBUTION WIDTH-CV 16.5 % (11.5-14.5)
[2020-01-19 07:02] LABS: HEMATOCRIT 23.5 % (42.0-52.0); HEMOGLOBIN 7.2 g/dl (13.5-18.0); MEAN CORPUSCULAR HEMOGLOBIN 28 pg (27.0-31.0)
--- NOTE | 2020-01-19 08:42 | NUR ---
Assessment complete. Patient resting in bed, easy to arouse upon entry. Pt is aware of his POC for another CT this morning. States his pain is not too bad this morning. Cap changed on his PortaCath site. No other complaints at this time. Swelling in his left foot is minimal. No further needs, call light is in place.
--- NOTE | 2020-01-19 10:40 | NUR ---
Pt on ct table in supine position. Monitors applied and O2 on at 2l/nc.
--- NOTE | 2020-01-19 11:00 | NUR ---
Specimen obtained from abscess, placed in specimen cup. Drain placed into abscess in right lower pelvic area.
--- NOTE | 2020-01-19 11:05 | NUR ---
180 mls of purulent drainage removed from abscess by Dr Araujo.
--- NOTE | 2020-01-19 15:57 | NUR ---
Due to pt having to leave room multiple times today his zosyn finished just as the next was due, called pharmacy to retime due to the delay in administration, same with fluids, they have been retimed as well.
--- NOTE | 2020-01-19 18:13 | NUR ---
Pt had a good day following his abcess drain this morning. Pain has been pretty constant. His pain was at a 10 at one point espite getting norco every 4 hr, spoke with Piedad about it, they ordered Morphine. Pt did not want the morphine states "it scares me, I would rather wait and try the new nerve pill the doctor got me for bed time". He is to get his first dose of neurontin tonight and wants to see if that helps. No other concerns or needs at this time. Call light in reach.
--- NOTE | 2020-01-19 21:55 | NUR ---
PT PLEASANT AND EAGER TO SOCIALIZE. PT SHOWED DRAIN AND SITE LOOKED CLEAR DRY INTACT. PT TOOK MEDS, RATED PAIN AT 6/10 UPON REASSESMENT NEURONTIN DID NOT HELP, NORCO ADMINISTERED PAIN STILL AT 6/10. WATER REFILLED AT BEDSIDE, CALL LIGHT WITHIN REACH. UNREMARKABLE ASSESSMENT. PT DENIES ANY OTHER NEEDS AT THIS TIME.
[2020-01-20] VITALS (7 sets, daily range): BP systolic 122–141; BP diastolic 67–82; PULSE 67–76; TEMP 97.9–98.9
--- NOTE | 2020-01-20 01:44 | NUR ---
PT VERBALIZED WANTING TO BE WOKEN UP TO TAKE PAIN MEDICATION. PT WOKEN UP FOR NORCO AND STATED PAIN WAS AT 8/10. WILL CONTINUE TO MONITOR.
--- NOTE | 2020-01-20 05:22 | NUR ---
PT IN BED AWAKE. UNEVENTFUL NIGHT. PAIN MANAGED WITH NORCO EVERY 4 HOURS. PT SELF SUFFICIENT IN TAKING CARE OF DRAINS AND OSTOMIES. PT VERY PLEASANT. BED IN LOW POSITION, CALL LIGHT WITHIN REACH, DENIES ANY OTHER NEEDS AT THIS TIME.
[2020-01-20 07:45] LABS: BASO % 0.4 % (0.0-2.0); EOS # 0.3 (0.0-0.7); EOS % 3.1 % (0-4.0); GRAN # 6.3 (1.4-6.5); GRAN % 71.1 % (42.2-75.2); LYMPH # 1.5 (1.2-3.4); LYMPH % 16.8 % (20.0-51.0); MEAN CELL VOLUME 92 fl (80.0-100.0); MEAN CORPUSCULAR HGB CONC 30 g/dl (33.0-37.0); MEAN PLATELET VOLUME 10.9 fl (7.4-10.4); MONO # 0.7 (0.1-0.6); MONO % 8.2 % (1.7-9.3); PLATELET COUNT 435 K/mm3 (130-400); RED BLOOD COUNT 2.63 M/mm3 (4.20-5.60); REDCELL DISTRIBUTION WIDTH-CV 16.5 % (11.5-14.5)
[2020-01-20 07:46] LABS: CALCIUM 8.7 mg/dL (8.4-10.2); CREATININE, serum 1.36 (0.66-1.25); POTASSIUM 3.4 mmol/L (3.4-5.0)
[2020-01-20 07:53] LABS: HEMOGLOBIN 7.3 g/dl (13.5-18.0); MEAN CORPUSCULAR HEMOGLOBIN 28 pg (27.0-31.0)
[2020-01-20 07:54] LABS: HEMATOCRIT 24.1 % (42.0-52.0)
--- NOTE | 2020-01-20 19:47 | NUR ---
Morning assessment complete. A&O x4. Good mood today. Rates pain 3/10 in L foot. Trace edema to foot. HR reg. LS clear in all garner. Bowel sounds x4. Has urostomy and is independent in care. Drains slightly, cloudy yellow urine. Total drained today 775. Nephrostomy drained 475 of bloody drainage total for the day. IV fluids decreased to 75mL/hr as ordered. Vanco trough results called to Dr Schmidt and to continue same dose of Vanco. Given Simon 7.5 2tabs twice today. Poor appetite. Family brought in some food and did eat a little. No fever or diarrhea this shift. End of shift pt up ambulating in john. Quiet day.
--- NOTE | 2020-01-20 19:56 | NUR ---
PT IN BED. STATED PAIN AT 01/29. REFUSED GABAPENTIN UNLESS HIGHER DOSE IS PERSCRIBED BECAUSE "I DON'T SEE A POINT IN TAKING A PILL THAT DON'T WORK". PT PLEASANT WITH TABLE AT BEDSIDE. WATER, BOOK, CALL LIGHT, ALSO AT BEDSIDE. CUP OF ICE WAS RETRIEVED REQUESTED. CHUCKIE CARMONA. PT DENIES ANY OTHER NEEDS AT THIS TIME.
[2020-01-21 04:20] VITALS: BP 165/76; PULSE 64; TEMP 98.7
--- NOTE | 2020-01-21 05:23 | NUR ---
PT IN BED IN LOW POSITION, CALL LIGHT IN BED, TABLE AT BEDSIDE WITH WATER AND ICE. PT PAIN CONTROLLED WITH PRN NORCO GIVEN Q4H. ANTIBIOTICS HUNG. PT OVERALL PLEASANT AND TALKATIVE. PT SELF SUFFICIENT WITH DRAINS AND NEPHROSTOMY AND OSTOMY. PT STATES PAIN IN CONTROL AT 4/10 AT THE MOMENT. PT DENIES ANY OTHER NEEDS AT THIS TIME.
[2020-01-21 08:06] VITALS: BP 158/87; PULSE 77; TEMP 98.1
[2020-01-21 08:41] LABS: BASO # 0.1 (0.0-0.2); BASO % 0.6 % (0.0-2.0); EOS # 0.4 (0.0-0.7); EOS % 4.6 % (0-4.0); GRAN # 4.9 (1.4-6.5); GRAN % 61.8 % (42.2-75.2); LYMPH % 24.4 % (20.0-51.0); MEAN CELL VOLUME 91 fl (80.0-100.0); MEAN CORPUSCULAR HGB CONC 31 g/dl (33.0-37.0); MEAN PLATELET VOLUME 10.7 fl (7.4-10.4); MONO # 0.7 (0.1-0.6); MONO % 8.1 % (1.7-9.3); PLATELET COUNT 494 K/mm3 (130-400); RED BLOOD COUNT 3.06 M/mm3 (4.20-5.60); REDCELL DISTRIBUTION WIDTH-CV 16.5 % (11.5-14.5)
[2020-01-21 08:48] LABS: CALCIUM 8.8 mg/dL (8.4-10.2); CREATININE, serum 1.28 (0.66-1.25); POTASSIUM 3.3 mmol/L (3.4-5.0)
[2020-01-21 08:53] LABS: HEMATOCRIT 27.9 % (42.0-52.0); HEMOGLOBIN 8.6 g/dl (13.5-18.0); MEAN CORPUSCULAR HEMOGLOBIN 28 pg (27.0-31.0)
--- NOTE | 2020-01-21 09:25 | NUR ---
Pt awake and alert upon entry, has C/O pain this morning, medications given for relief, no other issues noted, shift assessment complete, left Pt call light in reach, bed in lowest position.
[2020-01-21 12:21] VITALS: BP 145/82; PULSE 72; TEMP 98.2
[2020-01-21 15:21] VITALS: BP 153/87; PULSE 76; TEMP 98.4
--- NOTE | 2020-01-21 18:44 | NUR ---
Pt resting in the room during the day, has had some C/O pain during the shift with medications given for relief, no other issues noted, VS have remained stable, accodian drain has been draining reddish fluid today.
--- NOTE | 2020-01-21 19:32 | NUR ---
PT IN BED WITH . COMPLAINING OF PAIN 08/01, RECEIVED NORCO AT 1830, WILL REASSESS SOON TO SEE IF PAIN IS RELIEVED. L FOOT EDEMETOUS 2+, WHERE PAIN IS LOCATED. DID NOT EAT ANY OF HIS DINNER. CUP OF ICE RETREIVED REQUESTED. NEPHROSTOMY EMPTIED, OUTPUT 275. TABLE WITH WATER, CALL LIGHT AT BEDSIDE. NO OTHER NEEDS AT THIS TIME.
[2020-01-21 23:26] VITALS: BP 147/88; PULSE 74; TEMP 99.6
[2020-01-22 03:57] VITALS: BP 133/71; PULSE 79; TEMP 98.7
--- NOTE | 2020-01-22 06:06 | NUR ---
PT RECEIVING PAIN MEDS TO CONTROL PAIN, GOOD OUTPUT FROM NEPHROSTOMY, OVERALL UNEVENTFUL SHIFT, BED IN LOW POSITION, CALL LIGHT WITHIN REACH, ICE WATER GIVEN REQUESTED. NO OTHER NEEDS AT THIS TIME.
[2020-01-22 08:20] VITALS: BP 146/82; PULSE 81; TEMP 98
[2020-01-22 09:56] LABS: MEAN CELL VOLUME 90 fl (80.0-100.0); MEAN CORPUSCULAR HGB CONC 31 g/dl (33.0-37.0); MEAN PLATELET VOLUME 10.2 fl (7.4-10.4); PLATELET COUNT 545 K/mm3 (130-400); RED BLOOD COUNT 3.13 M/mm3 (4.20-5.60); REDCELL DISTRIBUTION WIDTH-CV 16.4 % (11.5-14.5)
[2020-01-22 10:05] LABS: CREATININE, serum 1.37 (0.66-1.25); POTASSIUM 3.4 mmol/L (3.4-5.0)
[2020-01-22 10:07] LABS: HEMATOCRIT 28.3 % (42.0-52.0); HEMOGLOBIN 8.7 g/dl (13.5-18.0); MEAN CORPUSCULAR HEMOGLOBIN 28 pg (27.0-31.0)
[2020-01-22 11:16] LABS: EOSINOPHIL 5 % (0-4); LYMPHOCYTE 21 % (20.0-51.0); NEUTROPHILS 64 % (42.0-75.2)
[2020-01-22 11:17] LABS: PLATELET ESTIMATE INCREASED (NORMAL)
[2020-01-22 12:03] VITALS: BP 148/92; PULSE 79; TEMP 97.9
[2020-01-22 16:22] VITALS: BP 148/84; PULSE 73; TEMP 98
--- NOTE | 2020-01-22 19:48 | NUR ---
Pt resting in the room today, accordian drain has produced less drainage that yesterday, Pt has had C/O pain today and was gived medications for relief with good results, VS have remained stable.
[2020-01-22 20:30] VITALS: BP 145/77; PULSE 78; TEMP 98.2
--- NOTE | 2020-01-22 20:30 | NUR ---
Patient assessed at this time. Alert and oriented x 4, and able to make needs known. Reports pain is doing well at this time. Zosyn started per orders to port to right chest. Dressing to area is CDI. Denies SOB and dyspnea. LS CTA. Respirations even and unlabored. HRR. Capillary refill less than 3 seconds. Non-tenting skin turgor. BSAx4. Abdomen soft and non-tender. Has accordian drain to abscess. No drainage at this time. Nephrostomy and colostomy-patient independent with cares. No edema. Given PRN Tums as requested for upset stomach. Voices no further questions, needs, or concerns at this time. In bed with call light within reach.
--- NOTE | 2020-01-22 22:08 | NUR ---
Patient reporting level 9 pain to left leg. Given PRN [place] as requested for pain.
[2020-01-22 23:23] VITALS: BP 140/66; PULSE 74; TEMP 98.1
[2020-01-23 02:48] VITALS: BP 134/81; PULSE 74; TEMP 97.2
--- NOTE | 2020-01-23 04:10 | NUR ---
Patient complaining of pain to leg. Given PRN [place] as requested for pain. Emptied nephrostomy as well. Voices no further questions, needs, or concerns at this time. Resting in bed with call light within reach.
--- NOTE | 2020-01-23 05:17 | NUR ---
Patient received PRN [place] twice this shift. Overal reports decreased pain compared to a few nights ago. Received scheduled Zosyn per orders. Has been calling when emptying nephrostomy and accordian drain to abscess. Documented outputs. Voices no furhter questions, needs, or concerns. Patient pleasant and cooperative.
[2020-01-23 07:12] LABS: BASO # 0.1 (0.0-0.2); BASO % 0.6 % (0.0-2.0); EOS # 0.4 (0.0-0.7); EOS % 4.8 % (0-4.0); GRAN # 4.6 (1.4-6.5); GRAN % 58.7 % (42.2-75.2); LYMPH % 25.9 % (20.0-51.0); MEAN CELL VOLUME 91 fl (80.0-100.0); MEAN CORPUSCULAR HGB CONC 30 g/dl (33.0-37.0); MEAN PLATELET VOLUME 10.4 fl (7.4-10.4); MONO # 0.8 (0.1-0.6); MONO % 9.6 % (1.7-9.3); PLATELET COUNT 524 K/mm3 (130-400); RED BLOOD COUNT 2.88 M/mm3 (4.20-5.60); REDCELL DISTRIBUTION WIDTH-CV 16.4 % (11.5-14.5)
[2020-01-23 07:23] LABS: CALCIUM 9.3 mg/dL (8.4-10.2); CREATININE, serum 1.36 (0.66-1.25); POTASSIUM 3.2 mmol/L (3.4-5.0)
[2020-01-23 07:27] LABS: HEMATOCRIT 26.2 % (42.0-52.0); HEMOGLOBIN 7.9 g/dl (13.5-18.0); MEAN CORPUSCULAR HEMOGLOBIN 27 pg (27.0-31.0)
--- NOTE | 2020-01-23 09:05 | NUR ---
Pt awake and alert this morning upon entry, has C/O pain and medications were given for relief, medications given with sips of water, no other complaints noted, shift assessment complete, left Pt call light in reach, bed in lowest position.
[2020-01-23 09:18] VITALS: BP 141/95; PULSE 76; TEMP 98.7
[2020-01-23 12:55] VITALS: BP 133/89; PULSE 88; TEMP 98.1
--- NOTE | 2020-01-23 14:59 | NUR ---
Rehabilitation Clerk met with patient to review discharge plan. Patient states he is doing well and is ready to go home. Patient was observed by SW walking independently to the lounge to get ice for his water. No additional needs identified at this time.
[2020-01-23 17:29] VITALS: BP 141/85; PULSE 80; TEMP 98.5
--- NOTE | 2020-01-23 18:58 | NUR ---
Pt rested in the room today, has had C/O pain during the day, has received pain medication about every 4 hours and has maintained good relief, no other issue during the day, VS have remained stable.
--- NOTE | 2020-01-23 20:15 | NUR ---
Patient assessed at this time. Alert and oriented x 4, and able to make needs known. Denies having pain and discomfort at this time, stating that pain is well controlled. Port to right chest. Dressing to area CDI. Denies SOB and dyspnea. LS CTA. Respirations even and unlabored. HRR. Capillary refill less than 3 seconds. Non-tenting skin turgor. BSAx4. Abdomen soft and non-tender. No edema. Colostomy, right nephrostomy, and accordian drain in place. Patient taking care of and calls for assistance with emptying when needed. Voices no questions, needs, or concerns at this time. Resting in bed watching TV at this time. Call light is within reach.
[2020-01-23 20:40] VITALS: BP 144/79; PULSE 80; TEMP 98.1
--- NOTE | 2020-01-23 22:50 | NUR ---
Patient complaining of level 10 pain to left foot. Given PRN [place] as requested for pain.
[2020-01-23 23:31] VITALS: BP 145/88; PULSE 74; TEMP 98
--- NOTE | 2020-01-24 03:30 | NUR ---
Patient complaining of level 8 pain to left leg/foot. Given PRN [place] as requested for pain. Voices no further questions, needs, or concerns at this time.
[2020-01-24 04:11] VITALS: BP 132/78; PULSE 67; TEMP 98.1
--- NOTE | 2020-01-24 05:32 | NUR ---
Patient reports OSIRIS Almeida has helped. Denies having any further questions, needs, or concerns at this time. Patient resting in bed with call light within reach.
[2020-01-24 07:25] VITALS: BP 131/75; PULSE 73; TEMP 98
[2020-01-24 08:53] LABS: BASO % 0.5 % (0.0-2.0); EOS # 0.4 (0.0-0.7); EOS % 4.6 % (0-4.0); GRAN # 4.2 (1.4-6.5); LYMPH # 3.1 (1.2-3.4); LYMPH % 36.7 % (20.0-51.0); MEAN CELL VOLUME 91 fl (80.0-100.0); MEAN CORPUSCULAR HGB CONC 30 g/dl (33.0-37.0); MEAN PLATELET VOLUME 10.5 fl (7.4-10.4); MONO # 0.7 (0.1-0.6); MONO % 8.6 % (1.7-9.3); PLATELET COUNT 613 K/mm3 (130-400); RED BLOOD COUNT 3.17 M/mm3 (4.20-5.60)
[2020-01-24 09:00] LABS: HEMATOCRIT 28.9 % (42.0-52.0); HEMOGLOBIN 8.7 g/dl (13.5-18.0); MEAN CORPUSCULAR HEMOGLOBIN 27 pg (27.0-31.0)
[2020-01-24 09:07] LABS: CALCIUM 9.5 mg/dL (8.4-10.2); CREATININE, serum 1.34 (0.66-1.25); POTASSIUM 3.7 mmol/L (3.4-5.0)
[2020-01-24 12:29] VITALS: BP 148/75; PULSE 71; TEMP 98.1
[2020-01-24] MEDS ORDERED: AMOXICILLIN 50500 MG PO (12:50)
[2020-01-24] MEDS ORDERED: NEURONTIN100 MG/CAP PO (12:53)
--- NOTE | 2020-01-24 16:44 | NUR ---
PATIENT IS A/O AT TIME OF DISCHARGE. PATIENT PORT WAS DE-ACCESSED. PATIENT IS GOING HOME WITH FAMILY MEMBER. PATIENT VERBALIZE HE UNDERSTAND DISCHARGE INSTRUCTION, UPCOMING APPOINTMENT AND MEDICATION RECONCILIATION. PATIENT DISCHARGED.
== END 2020-01-24 16:00 | disposition home or self-care (01) | DRG 689 ==
LOC: COL.ER 14:41 → MEDICAL 17:56
PROVIDERS: Emergency Medicine; Nurse Practitioner Family; Physician Assistant; Student in an Organized Health Care Education/Training Program; ADMIT Hospitalist
PROC: 0J9C30Z Drainage of Pelvic Region Subcutaneous Tissue and Fascia with Drainage Device, Percutaneous Approach (ICD-10-PCS; principal; 2020-01-19)
DX: N39.0 Urinary tract infection, site not specified (principal); K65.1 Peritoneal abscess; N17.9 Acute kidney failure, unspecified; R65.10 Systemic inflammatory response syndrome (SIRS) of non-infectious origin without acute organ dysfunction; E44.0 Moderate protein-calorie malnutrition; C18.9 Malignant neoplasm of colon, unspecified; N13.6 Pyonephrosis; D47.3 Essential (hemorrhagic) thrombocythemia; G44.009 Cluster headache syndrome, unspecified, not intractable; E78.5 Hyperlipidemia, unspecified; N18.9 Chronic kidney disease, unspecified; I12.9 Hypertensive chronic kidney disease with stage 1 through stage 4 chronic kidney disease, or unspecified chronic kidney disease; E83.52 Hypercalcemia; B95.2 Enterococcus as the cause of diseases classified elsewhere; Z79.891 Long term (current) use of opiate analgesic; Z79.82 Long term (current) use of aspirin; Z93.3 Colostomy status; Z85.038 Personal history of other malignant neoplasm of large intestine; Z85.46 Personal history of malignant neoplasm of prostate; Z87.891 Personal history of nicotine dependence
CPT/HCPCS: 99222-AI; 99232-AI; 99233-AI; 99239; A4216; C1729; J0696; J1644; J2250; J2543; J3010; J3370; J7030; J7050; Q9967

== ENCOUNTER 2020-02-13 17:30 | Inpatient (IN) | payer BC ==
[~2020-02-13] VITALS: Ht 182.9 cm; Wt 75.6 kg
[~2020-02-13 17:30] MED LIST changes: +AMOXICILLIN 50500 MG PO; +NEURONTIN100 MG/CAP PO; +NORCO 325 MG-7.1 TAB PO
[2020-02-13 18:17] LABS: BASO % 0.5 % (0.0-2.0); EOS # 0.1 (0.0-0.7); GRAN # 3.5 (1.4-6.5); GRAN % 53.2 % (42.2-75.2); HEMOGLOBIN 11.1 g/dl (13.5-18.0); LYMPH # 2.4 (1.2-3.4); LYMPH % 36.5 % (20.0-51.0); MEAN CELL VOLUME 89 fl (80.0-100.0); MEAN CORPUSCULAR HEMOGLOBIN 28 pg (27.0-31.0); MEAN CORPUSCULAR HGB CONC 31 g/dl (33.0-37.0); MEAN PLATELET VOLUME 10.6 fl (7.4-10.4); MONO # 0.5 (0.1-0.6); MONO % 7.3 % (1.7-9.3); PLATELET COUNT 346 K/mm3 (130-400); RED BLOOD COUNT 3.95 M/mm3 (4.20-5.60); REDCELL DISTRIBUTION WIDTH-CV 17.2 % (11.5-14.5)
[2020-02-13 18:33] LABS: ALBUMIN 4.7 gm/dL (3.5-5.0); BILIRUBIN,TOTAL 0.7 mg/dL (0.0-1.0); CALCIUM 10.6 mg/dL (8.4-10.2); CREATININE, serum 1.33 (0.66-1.25); TOTAL PROTEIN 8.5 gm/dL (6.4-8.2)
[2020-02-13 18:44] LABS: HEMATOCRIT 35.3 % (42.0-52.0)
[2020-02-13 21:06] VITALS: BP 143/92; PULSE 104; TEMP 98.3
[2020-02-13 21:11] VITALS: BP 143/93; PULSE 104; TEMP 98.3
[2020-02-13 23:36] LABS: COLLECTION METHOD UROSTOMY
[2020-02-13 23:39] VITALS: BP 157/92; PULSE 96; TEMP 98.1
[2020-02-14] VITALS (8 sets, daily range): BP systolic 110–157; BP diastolic 52–92; PULSE 73–101; TEMP 97.9–98.7
[2020-02-14 00:10] LABS: PH 6 (5-8); SQUAMOUS EPITHELIAL 0-2 /hpf; URINE APPEARANCE Hazy; URINE BACTERIA None Seen /hpf; URINE BILIRUBIN Negative (NEGATIVE); URINE BLOOD Negative (NEGATIVE); URINE COLOR Yellow; URINE GLUCOSE Negative (NEGATIVE); URINE KETONE 1+ (NEGATIVE); URINE LEUKOCYTE ESTERASE 2+ (NEGATIVE); URINE NITRATE Negative (NEGATIVE); URINE PROTEIN(semi-quant) Negative (NEGATIVE); URINE RBC 0-2 /hpf; URINE UROBILINOGEN Negative (NEGATIVE)
--- NOTE | 2020-02-14 03:52 | NUR ---
Patient to the floor at about 1999. Complains of abdominal pain. 2mg morphine administered. No relief. AUNG Navarrete, notified and ordered 0.5mcg of dilaudid be given. Administered with some relief. PARADI TENDER ordered for patient. At this time patient was c/o pain 10/10 to abdomen. After PARADI TENDER was set up and started administering medication, patient's pain level went from 10 to 6/10. About an hour and a half later, patient stated pain was at a 3/10. Patient noted to be sleeping off and on throughout the shift. When he is awakened, patient states pain is much more manageable now. Denies nausea. No output from colostomy at this time. Will continue to monitor patient.
--- NOTE | 2020-02-14 04:08 | NUR ---
patient refuses to wear SCDs. Education provided on the importance of this and continues to refuse.
[2020-02-14 06:54] LABS: BASO % 0.7 % (0.0-2.0); EOS # 0.1 (0.0-0.7); EOS % 2.2 % (0-4.0); GRAN # 3.1 (1.4-6.5); GRAN % 50.4 % (42.2-75.2); LYMPH # 2.1 (1.2-3.4); LYMPH % 34.3 % (20.0-51.0); MEAN CELL VOLUME 92 fl (80.0-100.0); MEAN CORPUSCULAR HGB CONC 31 g/dl (33.0-37.0); MEAN PLATELET VOLUME 11.6 fl (7.4-10.4); MONO # 0.7 (0.1-0.6); MONO % 12.1 % (1.7-9.3); PLATELET COUNT 312 K/mm3 (130-400); RED BLOOD COUNT 3.41 M/mm3 (4.20-5.60); REDCELL DISTRIBUTION WIDTH-CV 17.5 % (11.5-14.5)
[2020-02-14 06:56] LABS: HEMATOCRIT 31.3 % (42.0-52.0); HEMOGLOBIN 9.6 g/dl (13.5-18.0); MEAN CORPUSCULAR HEMOGLOBIN 28 pg (27.0-31.0)
[2020-02-14 06:58] LABS: CALCIUM 9.5 mg/dL (8.4-10.2); CREATININE, serum 1.5 (0.66-1.25); INR 1.2 (0.8-3.0); MAGNESIUM 2.3 mg/dL (1.6-2.3); POTASSIUM 3.8 mmol/L (3.4-5.0); PROTHROMBIN TIME 14.5 SECONDS (9.7-12.8)
--- NOTE | 2020-02-14 08:00 | NUR ---
PATIENT IS A&O. VSS. TELE INPLACE WITH HR AT 102. PATIENT C/O MODERATE PAIN BUT REPORTS DILAUDID PANEL FITTER HELPS. PATIENT INDENPENDENT IN ROOM. GAIT STEADY. PATIENT HAS CHRONIC RIGHT NEPH TUBE TO DD WITH MOD AMOUNTS OF CLEAR YELLOW URINE NOTED. COLOSTOMY WITH WAFER & BAG INPLACE. NOTED SCANT LIQUID STOOL IN BAG, NO GAS. BOWL SOUNDS PRESET X4 QUADS. NO C/O N/V. IV FLUIDS INFUSING VIA PUMP INTO RIGHT AC. PATIENT NPO WITH CHIPS. AM MEDS GIVEN WITH SIPS. HEAD TO TOE ASSESSMENT WNL.
--- NOTE | 2020-02-14 09:30 | NUR ---
HOSPITALIST CARE TEAM ROUNDING.
--- NOTE | 2020-02-14 11:20 | NUR ---
Hot Worker met with patient to discuss discharge planning. Patient lives in [place] with his Helen (ph#[phone]) and sees Dr. John Geiger for primary care. Patient obtains medications from [facility] in [place]. 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 Patient states he saw his PCP in between hospitalizations and took his medications as prescribed. Patient discharged home with no services. Patient uses a cane and reports independence with ADLS. Patient states his is his DPOA-HC. Patient plans to return home upon discharge with Helen providing transportation. SW to continue to follow as needed.
--- NOTE | 2020-02-14 11:33 | NUR ---
First visit from the java systems analyst. No needs right now.
--- NOTE | 2020-02-14 20:13 | NUR ---
Pt doing well. alert and oriented with vss. heart and lung sounds normal. on tele, normal sinus. bowel sounds aud all quad. did have loose still in ostomy bag this evening, about 350ml output, brown. Has R neph tube with leg bag to depend drain, clear yellow urine. pedal pulses present. C/o pain, prn norco given per orders. Ostomy site to L abdomen, CD&I, pt changes himself, along with R neph tube bag. Denies needs. Call light within reach, will continue to monitor
--- NOTE | 2020-02-15 04:00 | NUR ---
Pt has had uneventful night. Ind in room. Denies needs. Call light within reach, will continue to monitor
[2020-02-15 04:05] VITALS: BP 130/76; PULSE 87; TEMP 98.5
--- NOTE | 2020-02-15 06:08 | NUR ---
Pt had a few BMs this shift, med brown stool.
[2020-02-15 06:31] LABS: BASO % 0.6 % (0.0-2.0); EOS # 0.1 (0.0-0.7); EOS % 3.6 % (0-4.0); GRAN # 1.5 (1.4-6.5); GRAN % 44.2 % (42.2-75.2); LYMPH # 1.2 (1.2-3.4); LYMPH % 35.8 % (20.0-51.0); MEAN CELL VOLUME 91 fl (80.0-100.0); MEAN CORPUSCULAR HGB CONC 30 g/dl (33.0-37.0); MEAN PLATELET VOLUME 11.2 fl (7.4-10.4); MONO # 0.5 (0.1-0.6); MONO % 15.5 % (1.7-9.3); PLATELET COUNT 271 K/mm3 (130-400); RED BLOOD COUNT 3.17 M/mm3 (4.20-5.60); REDCELL DISTRIBUTION WIDTH-CV 17.5 % (11.5-14.5)
[2020-02-15 06:46] LABS: HEMATOCRIT 28.9 % (42.0-52.0); HEMOGLOBIN 8.8 g/dl (13.5-18.0); MEAN CORPUSCULAR HEMOGLOBIN 28 pg (27.0-31.0)
[2020-02-15 06:50] LABS: CREATININE, serum 1.56 (0.66-1.25); POTASSIUM 3.8 mmol/L (3.4-5.0)
[2020-02-15 07:35] VITALS: BP 137/78; PULSE 86; TEMP 98.4
--- NOTE | 2020-02-15 09:09 | NUR ---
Patient alert and oriented, answers questions appropriately. See assessment. Abdomen soft, non tender, non distended. Bowel sounds hypoactive x4 quads. +Flatus, +Bowel movement. Ostomy to RUQ. Urostomy bag in place draining clear yellow urine. No c/o abdominal pain.
--- NOTE | 2020-02-15 10:49 | NUR ---
Dr Butt here to see patient.
--- NOTE | 2020-02-15 11:02 | NUR ---
Vision Impaired Teacher attended clinical rounds with the team. Hospitalist advised patient may be ready for discharge tomorrow. SW to continue to follow as needed.
[2020-02-15 12:37] VITALS: BP 133/78; PULSE 88; TEMP 98.1
[2020-02-15 16:15] VITALS: BP 136/74; PULSE 78; TEMP 98.1
[2020-02-15 19:53] VITALS: BP 141/79; PULSE 80; TEMP 98.9
[2020-02-15 23:30] VITALS: BP 135/85; PULSE 73
[2020-02-16 03:11] VITALS: BP 136/77; PULSE 62; TEMP 98.1
--- NOTE | 2020-02-16 05:33 | NUR ---
Patient has been resting in bed watching TV this shift. Patient has not complained of abdominal pain this shift. Patient has existing colostomy and nephrostomy bags that he manages. Fluids are capped at this time with IV site int he right AC. No complaints of nausea or vomiting this shift. Patient vitals within normal limits.
[2020-02-16 06:55] LABS: BASO % 0.5 % (0.0-2.0); EOS # 0.2 (0.0-0.7); EOS % 4.9 % (0-4.0); GRAN # 1.4 (1.4-6.5); GRAN % 39.4 % (42.2-75.2); LYMPH # 1.5 (1.2-3.4); LYMPH % 41.5 % (20.0-51.0); MEAN CELL VOLUME 92 fl (80.0-100.0); MEAN CORPUSCULAR HGB CONC 31 g/dl (33.0-37.0); MEAN PLATELET VOLUME 11.5 fl (7.4-10.4); MONO # 0.5 (0.1-0.6); MONO % 13.4 % (1.7-9.3); PLATELET COUNT 261 K/mm3 (130-400); RED BLOOD COUNT 3.06 M/mm3 (4.20-5.60); REDCELL DISTRIBUTION WIDTH-CV 17.2 % (11.5-14.5)
[2020-02-16 07:06] LABS: HEMOGLOBIN 8.6 g/dl (13.5-18.0); MEAN CORPUSCULAR HEMOGLOBIN 28 pg (27.0-31.0)
[2020-02-16 07:10] LABS: CALCIUM 9.2 mg/dL (8.4-10.2); CREATININE, serum 1.68 (0.66-1.25); POTASSIUM 3.5 mmol/L (3.4-5.0)
--- NOTE | 2020-02-16 07:25 | NUR ---
Patient resting in bed. Requesting his pain medication for pain 01/29, reports abdominal pain better today than yesterday. He did tolerate a yogurt without nausea for breakfast. Offered assistance with colostomy & neph tube care, he denies. He is going to change ostomy bag to LLQ. Flatus noted & stool noted in bag. Neph tube to DD, to Right. Will monitor.
[2020-02-16 07:39] VITALS: BP 127/65; PULSE 77; TEMP 98.1
--- NOTE | 2020-02-16 11:14 | NUR ---
Ear Muff Assembler attended clinical rounds with the team. Patient is not ready for discharge today although patient reports he is ready to go home. Hospitalist advised discharge tomorrow may be a possibility. MIGUEL spoke with RNIda who reports patient has been independent in his room. SW to continue to follow as needed.
[2020-02-16 12:46] VITALS: BP 141/82; PULSE 75; TEMP 97.8
[2020-02-16 15:48] VITALS: BP 153/82; PULSE 76; TEMP 98.6
[2020-02-16 19:23] VITALS: BP 160/79; PULSE 81; TEMP 98.2
--- NOTE | 2020-02-16 19:30 | NUR ---
Patient resting in bed. 2 tabs norco for pain. Pain continues to be in his L.foot mostly. Abdominal pain improved. He has had Bentyl for pain as well. Patient has reported, reflex/nausea this afternoon. He has denied the need for nausea medication, but did request Prilosec which he takes at home. Dr. Rachel made aware & order obtained. His appetite has been minimal today. He has had sherbet & ice cream today. Not much interest in general tray. Ivf were restarted per hospitalist, output from neph tube has increased, urine more clear. Colostomy output continues patient was independnt with cares. He has been on the telephone alot today & really hopeful to discharge home to his family tmrw. Report to Angie RIVERS
--- NOTE | 2020-02-16 20:50 | NUR ---
PT COMPLAINS OF ABDOMINAL PAIN. REPORTS NORCO ONLY HELPED HIS FOOT PAIN. MEDICATED WITH DILAUDID 0.5MG IVP AT THIS TIME. IVF INFUSING TO RIGHT AC WITHOUT REDNESS OR SWELLING. ABD WITH ACTIVE BOWEL SOUNDS, NEPH TUBE DRAINING WELL. PT REPORTS DECREASED COLOSTOMY OUTPUT THIS EVENING. REFUSED SENNA.
[2020-02-17 00:20] VITALS: BP 155/87; PULSE 81; TEMP 98.5
--- NOTE | 2020-02-17 03:06 | NUR ---
NORCO 7.5MG 2 TABS PO FOR LEFT FOOT PAIN. REPORTS DILAUDID WORKED WELL FOR ABD PAIN.
[2020-02-17 04:20] VITALS: BP 146/82; PULSE 86; TEMP 98.4
--- NOTE | 2020-02-17 04:56 | NUR ---
Medicated with IV Dilaudid 0.5mg for abd pain.
--- NOTE | 2020-02-17 06:00 | NUR ---
Pt reports good pain relief with Dilaudid.
[2020-02-17 06:38] LABS: BASO % 0.3 % (0.0-2.0); EOS # 0.1 (0.0-0.7); EOS % 2.5 % (0-4.0); GRAN # 1.3 (1.4-6.5); GRAN % 40.4 % (42.2-75.2); LYMPH # 1.3 (1.2-3.4); LYMPH % 41.6 % (20.0-51.0); MEAN CELL VOLUME 91 fl (80.0-100.0); MEAN CORPUSCULAR HGB CONC 31 g/dl (33.0-37.0); MEAN PLATELET VOLUME 11.3 fl (7.4-10.4); MONO # 0.5 (0.1-0.6); MONO % 14.9 % (1.7-9.3); PLATELET COUNT 275 K/mm3 (130-400); RED BLOOD COUNT 2.95 M/mm3 (4.20-5.60); REDCELL DISTRIBUTION WIDTH-CV 17.1 % (11.5-14.5)
[2020-02-17 06:45] LABS: CALCIUM 9.1 mg/dL (8.4-10.2); CREATININE, serum 1.55 (0.66-1.25); POTASSIUM 3.6 mmol/L (3.4-5.0)
[2020-02-17 06:51] LABS: HEMATOCRIT 26.9 % (42.0-52.0); HEMOGLOBIN 8.4 g/dl (13.5-18.0); MEAN CORPUSCULAR HEMOGLOBIN 28 pg (27.0-31.0)
--- NOTE | 2020-02-17 08:00 | NUR ---
PT WAS ALERT AND ORIENTED. VS WAS STABLE. PT COMPLAINED OF PAIN IN FOOT. GAVE PRN NORCO 2 TABS WITH AM MEDS. PAIN SCALE DECREASED TO 3 AFTER PAIN MEDICATION. PT COMPLAINS OF INTERMITTENT STOMACH PAIN ASSOCIATED WITH EATING. PT ALSO EXPRESSED CONCERN ABOUT DECREASED APPETITE, AND NUTRITION STATUS. IV FLUID INFUSING INTO RIGHT AC IV. PT DID NOT EAT MUCH BREAKFAST. PT'S AB WAS ROUND, SOFT AND WITH POSITIVE BOWEL SOUND. PT REPORTS STOOL FROM COLOSTOMY YESTERDAY. PT HAS CHRONIC RIGHT NEPHROSTOMY TUBE WITH GOOD URINE OUTPUT. URINE IS CLEAR AND YELLOW, TO DD. HEAD TO TOE ASSESSMENT WNL. PT IS INDEPENDENT IN ROOM AND NO OTHER NEEDS.
[2020-02-17 08:25] VITALS: BP 162/86; PULSE 82; TEMP 98.2
[2020-02-17] MEDS ORDERED: SENOKOT S 50 MG1 TAB PO (12:08)
[2020-02-17 12:18] VITALS: BP 156/84; PULSE 72; TEMP 98.1
--- NOTE | 2020-02-17 15:08 | NUR ---
PT DISCHARGING HOME VIA WHEELCHAIR. GAVE DISCHARGING INSTRUCTION AND PT TO SCHEDULE FOLLOW UP APPOINTMENT. ANSWERED ALL QUESTIONS AND CONCERNS. DC'D IV SITE WITH GAUGE AND TAPE. PT DISCHARGED.
== END 2020-02-17 15:08 | disposition home or self-care (01) | DRG 389 ==
LOC: COL.ER 17:30 → SURG 19:25
PROVIDERS: Emergency Medicine; Nurse Practitioner Family; Physician Assistant; Student in an Organized Health Care Education/Training Program; ADMIT Internal Medicine
DX: K56.609 Unspecified intestinal obstruction, unspecified as to partial versus complete obstruction (principal); N39.0 Urinary tract infection, site not specified; I12.9 Hypertensive chronic kidney disease with stage 1 through stage 4 chronic kidney disease, or unspecified chronic kidney disease; E78.5 Hyperlipidemia, unspecified; G44.009 Cluster headache syndrome, unspecified, not intractable; R78.5 Finding of other psychotropic drug in blood; R00.0 Tachycardia, unspecified; N18.2 Chronic kidney disease, stage 2 (mild); G62.9 Polyneuropathy, unspecified; Z85.048 Personal history of other malignant neoplasm of rectum, rectosigmoid junction, and anus; Z85.46 Personal history of malignant neoplasm of prostate; Z90.79 Acquired absence of other genital organ(s); Z93.3 Colostomy status; Z79.82 Long term (current) use of aspirin; Z87.891 Personal history of nicotine dependence
CPT/HCPCS: 99222-AI; 99232-AI; 99233-AI; A4216; J0696; J1170; J2270; J2405; J2550; J7030; J7120; Q9967